=== PATIENT | female | born 1955 | race African-American/Black ===

== ENCOUNTER 2016-11-08 00:34 | Emergency (ER) | payer BC, OTHER ==
[2016-11-08] MEDS ORDERED: NORMAL SALINE 1000 ML 1,000 ML IV ONE ×3 (04:28→10:45)
[2016-11-08] MEDS ORDERED: FAMOTIDINE INJ/PF 20 MG/2 ML SDV IV ONE (04:29)
[2016-11-08] MEDS ORDERED: ONDANSETRON HCL INJ/PF 4 MG/2 ML SDV IV ONE (04:29)
--- NOTE | 2016-11-08 05:49 | ER Document Report ---
ED General - General Chief Complaint: Nausea/Vomiting/Diarrhea Stated Complaint: VOMITING Time Seen by Provider: 11/08/16 04:16 Mode of Arrival: Ambulatory Information source: Patient TRAVEL OUTSIDE OF THE [place] IN LAST 30 DAYS: No - HPI Notes: Patient is a pleasant 61-year-old black female presents to the emergency department with report of vomiting and diarrhea which started yesterday without hematemesis or bright red blood per rectum. The patient reports generalized weakness with muscle cramps that she has noticed today. The patient states she feels dehydrated and needs IV fluids. The patient denies any chest pain or shortness of breath. The patient reports previous crampy abdominal pain, denying abdominal pain currently. The patient reports a day or 2 prior to the onset of symptoms she had eaten grilled shrimp. She is unaware of any other exposure. There is no history of irritable bowel or previous significant events. The patient has had no recent antibiotics. No fever or chills. No back pain. Past medical history asthma and tobacco abuse and hypertension. History of cervical cancer currently in remission, but last chemotherapy was 2 years ago. Medications lisinopril, hydrochlorothiazide, ProAir air, Neurontin, Percocet as needed which she does not take on every day basis. Patient states she is not out of her pain medication. - Related Data Allergies/Adverse Reactions: codeine [Codeine] Allergy (Verified 07/30/13 16:12) Past Medical History - General Information source: Patient - Social History Smoking Status: Current Every Day Smoker Frequency of alcohol use: Rare Drug Abuse: None Lives with: Family Family History: Reviewed & Not Pertinent Patient has suicidal ideation: No Patient has homicidal ideation: No - Past Medical History Cardiac Medical History: Reports: Hx Hypertension Renal/ Medical History: Denies: Hx Peritoneal Dialysis Past Surgical History: Reports: Hx Bowel Surgery - 4inches removed., Hx Cholecystectomy - Immunizations Hx Diphtheria, Pertussis, Tetanus Vaccination: No Review of Systems - Review of Systems Notes: REVIEW OF SYSTEMS: CONSTITUTIONAL : Denies fever, chills, or sweats. EENT: Denies eye, ear, throat, or mouth pain or symptoms. Denies nasal or sinus congestion or discharge. Denies throat, tongue, or mouth swelling or difficulty swallowing. CARDIOVASCULAR: Denies chest pain. Denies palpitations or racing or irregular heart beat. Denies ankle edema. RESPIRATORY: Denies cough, cold, or chest congestion. Denies shortness of breath, difficulty breathing, or wheezing. GASTROINTESTINAL: Denies abdominal distention. Denies blood in vomitus, stools, or per rectum. Denies black, tarry stools. Denies constipation. GENITOURINARY: Denies difficulty urinating, painful urination, burning, frequency, blood in urine, or discharge. FEMALE GENITOURINARY: Denies vaginal bleeding, heavy or abnormal periods, irregular periods. Denies vaginal discharge or odor. MUSCULOSKELETAL: Denies back or neck pain or stiffness. Denies joint pain or swelling. SKIN: Denies rash, lesions or sores. HEMATOLOGIC : Denies easy bruising or bleeding. LYMPHATIC: Denies swollen, enlarged glands. NEUROLOGICAL: Denies confusion or altered mental status. Denies passing out or loss of consciousness. Denies dizziness or lightheadedness. Denies headache. Denies weakness or paralysis or loss of use of either side. Denies problems with gait or speech. Denies sensory loss, numbness, or tingling. Denies seizures. PSYCHIATRIC: Denies anxiety or stress. Denies depression, suicidal ideation, or homicidal ideation. ALL OTHER SYSTEMS REVIEWED AND NEGATIVE. Dictation was performed using [employer] voice recognition software Physical Exam - Vital signs Vitals: Temp Pulse Resp BP Pulse Ox 97.6 F 116 H 20 132/105 H 96 11/08/16 00:39 11/08/16 00:39 11/08/16 00:39 11/08/16 00:39 11/08/16 00:39 - Notes Notes: PHYSICAL EXAMINATION: GENERAL: Well-appearing, well-nourished and in no acute distress. HEAD: Atraumatic, normocephalic. EYES: Pupils equal round and reactive to light, extraocular movements intact, conjunctiva are normal. ENT: Nares patent, oropharynx clear without exudates. Dry mucous membranes. NECK: Normal range of motion, supple without lymphadenopathy LUNGS: Breath sounds clear to auscultation bilaterally and equal. No wheezes rales or rhonchi. HEART: Regular rate and rhythm without murmurs ABDOMEN: Soft, nontender, nondistended abdomen. No guarding, no rebound. No masses appreciated. Female : deferred Musculoskeletal: Normal range of motion, no pitting or edema. No cyanosis. Diffuse muscle cramps noted. No erythema or specific spasticity. NEUROLOGICAL: Cranial nerves grossly intact. Normal speech, normal gait. Normal sensory, motor exams. Normal reflexes. PSYCH: Normal mood, normal affect. SKIN: Warm, Dry, normal turgor, no rashes or lesions noted. Course - Re-evaluation Re-evalutation: 11/08/16 06:45 Patient was rehydrated with IV fluids, and was given Zofran for nausea and Pepcid IV. Blood work and urinalysis ordered. Stool culture is ordered given the recent seafood. CK level ordered given muscle spasms. Abdomen is nontender on exam. No concern for C. difficile given no antibiotics. No suggestion for cardiac etiology. 11/08/16 06:45 - Vital Signs Vital signs: Temp Pulse Resp BP Pulse Ox 97.6 F 116 H 20 132/105 H 96 11/08/16 00:39 11/08/16 00:39 11/08/16 00:39 11/08/16 00:39 11/08/16 00:39 - Laboratory Result Diagrams: 11/08/16 06:00 11/08/16 06:00 Laboratory results interpreted by me: 11/08/16 11/08/16 06:00 06:00 RBC 5.43 H MCV 76 L MCH 23.9 L MCHC 31.4 L RDW 19.0 H BUN 38 H Creatinine 2.30 H Est GFR ( Amer) 26 L Est GFR (Non-Af Amer) 21 L Glucose 122 H - EKG Interpretation by Id EKG shows normal: Sinus rhythm Additional EKG results interpreted by me: 11/08/16 05:49 EKG as interpreted by hi showed normal sinus rhythm heart rate of 97. There is no gross evidence for acute CT or ischemia identified. There is bilateral atrial enlargement noted. There is no old EKG available for comparison. Discharge - Discharge Clinical Impression: Dehydration Vomiting Qualifiers: Vomiting type: unspecified Vomiting Intractability: unspecified Nausea presence : with nausea Qualified Code(s): R11.2 - Nausea with vomiting, unspecified Diarrhea Qualifiers: Diarrhea type: presumed infectious Qualified Code(s): A09 - Infectious gastroenteritis and colitis, unspecified
[2016-11-08 06:13] LABS: ABSOLUTE BASOPHILS # (AUTO) 0.1 10^3/uL (0.0-0.2); ABSOLUTE LYMPHOCYTES (AUTO) 1.3 10^3/uL (0.5-4.7); ABSOLUTE MONOCYTES (AUTO) 0.8 10^3/uL (0.1-1.4); ABSOLUTE NEUT (AUTO) 7.1 10^3/uL (1.7-8.2); BASOPHILS % (AUTO) 0.6 % (0-2); EOSINOPHILS % (AUTO) 0.1 % (0-6); HEMATOCRIT 41.5 % (36.0-47.0); HGB HCT DIFFERENCE -2.5; LYMPHOCYTES % (AUTO) 14.1 % (13-45); MEAN CORPUSCULAR HEMOGLOBIN 23.9 pg (27.0-33.4); MEAN CORPUSCULAR HGB CONC 31.4 g/dL (32.0-36.0); MEAN CORPUSCULAR VOLUME 76 fl (80-97); MONOCYTES % (AUTO) 8.9 % (3-13); RED BLOOD COUNT 5.43 10^6/uL (3.72-5.28); SEGMENTED NEUTROPHILS % (AUTO) 76.3 % (42-78); WHITE BLOOD COUNT 9.3 10^3/uL (4.0-10.5)
[2016-11-08 06:29] LABS: ALANINE AMINOTRANSFERASE 46 U/L (9-52); ALBUMIN 4.4 g/dL (3.5-5.0); ALKALINE PHOSPHATASE 118 U/L (38-126); ANION GAP 14 (5-19); ASPARTATE AMINO TRANSFERASE 22 U/L (14-36); BILIRUBIN,DIRECT 0.3 mg/dL (0.0-0.4); BLOOD UREA NITROGEN 38 mg/dL (7-20); CALCIUM 9.4 mg/dL (8.4-10.2); CARBON DIOXIDE 23 mmol/L (22-30); CHLORIDE 105 mmol/L (98-107); GLUCOSE 122 mg/dL (75-110); LIPASE 35.8 U/L (23-300); MAGNESIUM 1.7 mg/dL (1.6-2.3); POTASSIUM 4.6 mmol/L (3.6-5.0); SODIUM 142.3 mmol/L (137-145); TOTAL PROTEIN 8.2 g/dL (6.3-8.2)
[2016-11-08] MEDS ORDERED: NORMAL SALINE 1000 ML 1,000 ML IV PRN (06:34)
[2016-11-08] MEDS ORDERED: METOCLOPRAMIDE HCL INJ/PF 10 MG/2 ML SDV IV ONE (07:25)
[2016-11-08 09:21] LABS: APPEARANCE,URINE CLOUDY; BILIRUBIN,URINE NEGATIVE (NEGATIVE); GLUCOSE, URINE NEGATIVE (NEGATIVE); KETONES,URINE NEGATIVE (NEGATIVE); LEUKOCYTE ESTERASE,URINE MODERATE (NEGATIVE); NITRITE,URINE NEGATIVE (NEGATIVE); PROTEIN,URINE 30 mg/dL (NEGATIVE); URINE SPECIFIC GRAVITY 1.018; UROBILINOGEN,URINE NEGATIVE mg/dL (<2.0)
[2016-11-08 10:41] LABS: ALANINE AMINOTRANSFERASE 38 U/L (9-52); ALBUMIN 3.8 g/dL (3.5-5.0); ALKALINE PHOSPHATASE 107 U/L (38-126); ANION GAP 12 (5-19); ASPARTATE AMINO TRANSFERASE 23 U/L (14-36); BILIRUBIN,DIRECT 0.3 mg/dL (0.0-0.4); BLOOD UREA NITROGEN 35 mg/dL (7-20); CALCIUM 8.2 mg/dL (8.4-10.2); CARBON DIOXIDE 20 mmol/L (22-30); CHLORIDE 108 mmol/L (98-107); GLUCOSE 100 mg/dL (75-110); POTASSIUM 4.3 mmol/L (3.6-5.0); SODIUM 140.3 mmol/L (137-145); TOTAL PROTEIN 7.4 g/dL (6.3-8.2)
[2016-11-08 12:22] VITALS: BP 105/63
--- NOTE | 2016-11-08 13:01 | EKG REPORT ---
SEVERITY:- ABNORMAL ECG - SINUS RHYTHM APOLINAR, CONSIDER BIATRIAL ABNORMALITIES BORDERLINE PROLONGED QT INTERVAL : Confirmed by: Michelle Hopper MD 08-Nov-2016 13:00:37
== END 2016-11-08 12:21 | disposition home or self-care (01) ==
LOC: ER 00:34
DX: R11.2 Nausea with vomiting, unspecified (principal); R19.7 Diarrhea, unspecified; E86.0 Dehydration; N28.9 Disorder of kidney and ureter, unspecified; R53.1 Weakness; R25.2 Cramp and spasm; I10 Essential (primary) hypertension; F17.200 Nicotine dependence, unspecified, uncomplicated; Z85.41 Personal history of malignant neoplasm of cervix uteri; Z79.899 Other long term (current) drug therapy; Z88.5 Allergy status to narcotic agent; Z90.49 Acquired absence of other specified parts of digestive tract; I51.7 Cardiomegaly
CPT/HCPCS: 93005; 99284; 96361; 96374; 96375; 36415; 82553; 83690; 83735; 85025; 80053; 81001; 84484; 93010; J2765; J2405; J7030; S0028

== ENCOUNTER 2017-07-05 07:09 | Inpatient (IN) | payer BC ==
[2017-07-05] MEDS ORDERED: ONDANSETRON HCL INJ/PF 4 MG/2 ML SDV IV ONE ×2 (08:08→13:18)
[2017-07-05] MEDS ORDERED: NORMAL SALINE 1000 ML 1,000 ML IV ONE ×2 (08:08→09:45)
--- NOTE | 2017-07-05 08:10 | ER Document Report ---
ED GI/ - General Chief Complaint: Abdominal Pain Stated Complaint: NAUSEA ABDOMINAL PAIN Time Seen by Provider: 07/05/17 07:49 Mode of Arrival: Wheelchair Information source: Patient Notes: Patient presents complaining of nausea, vomiting diarrhea that started yesterday. Patient denies any fever but does report chills. Patient does report decreased urine output. Patient additionally complains of muscle cramps. Patient states that she had been taking narcotics regularly but took herself off of them a week ago. Patient does not feel as though she is in withdrawal symptoms at this time. TRAVEL OUTSIDE OF THE [place] IN LAST 30 DAYS: No - HPI Patient complains to provider of: Abdominal pain, Diarrhea, Vomiting. No: Dysuria Onset: Yesterday Timing/Duration: Persistent, Worse Quality of pain: Cramping Pain Level: 5 Location: Epigastric Vaginal bleeding (Compared to normal period): None Associated symptoms: Chills, Diarrhea, Nausea, Vomiting. denies: Chest pain, Dizzy, Fever, Urinary hesitancy, Urinary frequency, Urinary retention, Vaginal discharge Exacerbated by: Denies Relieved by: Denies Similar symptoms previously: No Recently seen / treated by doctor: No - Related Data Allergies/Adverse Reactions: codeine [Codeine] Allergy (Verified 07/30/13 16:12) Past Medical History - General Information source: Patient - Social History Smoking Status: Current Every Day Smoker Smoking Education Provided: Yes Frequency of alcohol use: None Drug Abuse: None Occupation: none Lives with: Family Family History: Reviewed & Not Pertinent - Past Medical History Cardiac Medical History: Reports: Hx Hypertension Renal/ Medical History: Denies: Hx Peritoneal Dialysis GI Medical History: Reports: Hx Gastroesophageal Reflux Disease Musculoskeltal Medical History: Reports Other - chronic back pain Past Surgical History: Reports: Hx Bowel Surgery - 4inches removed., Hx Cholecystectomy - Immunizations Hx Diphtheria, Pertussis, Tetanus Vaccination: No Review of Systems - Review of Systems Constitutional: Chills. denies: Fever EENT: No symptoms reported Cardiovascular: No symptoms reported. denies: Chest pain Respiratory: No symptoms reported. denies: Cough, Short of breath Gastrointestinal: Abdominal pain, Diarrhea, Nausea, Vomiting, Poor fluid intake Genitourinary: Other - decreased output. denies: Dysuria Female Genitourinary: No symptoms reported Musculoskeletal: Back pain - chronic Skin: No symptoms reported Hematologic/Lymphatic: No symptoms reported Neurological/Psychological: No symptoms reported Physical Exam - Vital signs Vitals: Temp Pulse Resp BP Pulse Ox 97.8 F 122 H 20 118/72 95 07/05/17 07:18 07/05/17 07:18 07/05/17 07:18 07/05/17 07:18 07/05/17 07:18 - General General appearance: Alert In distress: Mild - HEENT Head: Normocephalic, Atraumatic Eyes: Normal Conjunctiva: Normal Nasal: Normal Mouth/Lips: Normal Mucous membranes: Dry Pharynx: Normal Neck: Normal, Supple - Respiratory Respiratory status: No respiratory distress Chest status: Nontender Breath sounds: Normal. No: Rales, Rhonchi, Stridor, Wheezing Chest palpation: Normal - Cardiovascular Rhythm: Tachycardia Heart sounds: S1 appreciated, S2 appreciated Murmur: No - Abdominal Inspection: Other - scars from previous abd surgery Distension: No distension Tenderness: Tender - epig, RUQ/LUQ Organomegaly: No organomegaly - Back Back: CVA tenderness - Extremities General upper extremity: Normal inspection, Nontender, Normal strength General lower extremity: Normal inspection, Nontender, Normal strength - Neurological Neuro grossly intact: Yes Cognition: Normal Amarjit Coma Scale Eye Opening: Spontaneous [place] Coma Scale Verbal: Oriented [place] Coma Scale Motor: Obeys Commands [place] Coma Scale Total: 15 - Psychological Associated symptoms: Normal affect, Normal mood - Skin Skin Temperature: Warm Skin Moisture: Dry Skin Color: Pale Course - Re-evaluation Re-evalutation: 07/05/17 10:00 Consulted with surgeon regarding patient's x-ray report. Presents with vomiting and diarrhea he advises obtaining CT scan as he is doubtful that patient has a bowel obstruction even the presence of diarrhea. 07/05/17 11:30 Patient continues with nausea and abdominal tenderness. CT scan report reviewed. Consulted with Dr. Braga regarding CT scan report. Agrees to come and evaluate patient in the emergency department. 07/05/17 15:25 Surgeon agrees to accept patient for admission and plans to take her to the OR - Vital Signs Vital signs: Temp Pulse Resp BP Pulse Ox 98.4 F 100 20 133/75 H 96 07/05/17 17:23 07/05/17 17:23 07/05/17 17:23 07/05/17 17:23 07/05/17 17:23 - Laboratory Result Diagrams: 07/05/17 08:50 07/05/17 08:50 Laboratory results interpreted by me: 07/05/17 07/05/17 07/05/17 08:50 08:50 10:00 WBC 14.2 H RBC 6.11 H MCV 74 L MCH 23.0 L MCHC 31.1 L RDW 19.0 H Seg Neuts % (Manual) 96 H Lymphocytes % (Manual) 2 L Monocytes % (Manual) 2 L Abs Neuts (Manual) 13.6 H Abs Lymphs (Manual) 0.3 L BUN 32 H Creatinine 1.84 H Est GFR ( Amer) 34 L Est GFR (Non-Af Amer) 28 L Glucose 182 H Calcium 11.0 H AST 43 H ALT 81 H Alkaline Phosphatase 155 H Total Protein 9.4 H Albumin 5.2 H Urine Protein 100 H Urine Urobilinogen 2.0 H Ur Leukocyte Esterase LARGE H Labs- Entire Visit 07/05/17 07/05/17 07/05/17 08:50 08:50 10:00 WBC 14.2 H RBC 6.11 H Hgb 14.1 Hct 45.2 MCV 74 L MCH 23.0 L MCHC 31.1 L RDW 19.0 H Plt Count 431 Total Counted 100 Seg Neutrophils % Not Reportable Seg Neuts % (Manual) 96 H Lymphocytes % Not Reportable Lymphocytes % (Manual) 2 L Monocytes % Not Reportable Monocytes % (Manual) 2 L Eosinophils % Not Reportable Eosinophils % (Manual) 0 Basophils % Not Reportable Basophils % (Manual) 0 Absolute Neutrophils Not Reportable Abs Neuts (Manual) 13.6 H Absolute Lymphocytes Not Reportable Abs Lymphs (Manual) 0.3 L Absolute Monocytes Not Reportable Abs Monocytes (Manual) 0.3 Absolute Eosinophils Not Reportable Absolute Eos (Manual) 0.0 Absolute Basophils Not Reportable Abs Basophils (Manual) 0.0 Toxic Granulation SLIGHT Large Platelets PRESENT Giant Platelets PRESENT Platelet Comment ADEQUATE Anisocytosis 2+ Microcytosis 1+ Sodium 141.5 Potassium 3.9 Chloride 99 Carbon Dioxide 27 Anion Gap 16 BUN 32 H Creatinine 1.84 H Est GFR ( Amer) 34 L Est GFR (Non-Af Amer) 28 L Glucose 182 H Calcium 11.0 H Magnesium 1.7 Total Bilirubin 1.0 Direct Bilirubin 0.4 Neonat Total Bilirubin Not Reportable Neonat Direct Bilirubin Not Reportable Neonat Indirect Bili Not Reportable AST 43 H ALT 81 H Alkaline Phosphatase 155 H Total Protein 9.4 H Albumin 5.2 H Lipase 84.8 Urine Color SHARATH Urine Appearance CLOUDY Urine pH 5.0 Ur Specific Inlet 1.028 Urine Protein 100 H Urine Glucose (UA) NEGATIVE Urine Ketones NEGATIVE Urine Blood NEGATIVE Urine Nitrite NEGATIVE Urine Bilirubin NEGATIVE Urine Urobilinogen 2.0 H Ur Leukocyte Esterase LARGE H Urine WBC (Auto) 61 Urine RBC (Auto) 14 U Hyaline Cast (Auto) 7 Urine Bacteria (Auto) 1+ Squamous Epi Cells Auto 37 Urine Mucus (Auto) MOD Urine Ascorbic Acid NEGATIVE - Diagnostic Test Radiology reviewed: Reports reviewed Discharge - Discharge Clinical Impression: Vomiting and diarrhea, Small bowel obstruction Abdominal pain Qualifiers: Abdominal location: upper abdomen, unspecified Qualified Code(s): R10.10 - Upper abdominal pain, unspecified UTI (urinary tract infection) Qualifiers: Urinary tract infection type: site unspecified Hematuria presence: without hematuria Qualified Code(s): N39.0 - Urinary tract infection, site not specified Condition: Stable Disposition: ADMITTED INPATIENT Admitting Provider: Surgicalist Unit Admitted: Surgical Floor
[2017-07-05 09:05] LABS: HEMATOCRIT 45.2 % (36.0-47.0); HEMOGLOBIN 14.1 g/dL (12.0-15.5); MEAN CORPUSCULAR HGB CONC 31.1 g/dL (32.0-36.0); MEAN CORPUSCULAR VOLUME 74 fl (80-97); PLATELET COUNT 431 10^3/uL (150-450); RED BLOOD COUNT 6.11 10^6/uL (3.72-5.28); WHITE BLOOD COUNT 14.2 10^3/uL (4.0-10.5)
[2017-07-05 09:22] LABS: ALANINE AMINOTRANSFERASE 81 U/L (9-52); ALBUMIN 5.2 g/dL (3.5-5.0); ALKALINE PHOSPHATASE 155 U/L (38-126); ANION GAP 16 (5-19); ASPARTATE AMINO TRANSFERASE 43 U/L (14-36); BILIRUBIN,DIRECT 0.4 mg/dL (0.0-0.4); BLOOD UREA NITROGEN 32 mg/dL (7-20); CARBON DIOXIDE 27 mmol/L (22-30); CHLORIDE 99 mmol/L (98-107); GLUCOSE 182 mg/dL (75-110); LIPASE 84.8 U/L (23-300); MAGNESIUM 1.7 mg/dL (1.6-2.3); POTASSIUM 3.9 mmol/L (3.6-5.0); SODIUM 141.5 mmol/L (137-145); TOTAL PROTEIN 9.4 g/dL (6.3-8.2)
[2017-07-05 09:25] LABS: ABSOLUTE LYMPHOCYTES# (MANUAL) 0.3 10^3/uL (0.5-4.7); ABSOLUTE MONOCYTES # (MANUAL) 0.3 10^3/uL (0.1-1.4); ABSOLUTE NEUTROPHILS# (MANUAL) 13.6 10^3/uL (1.7-8.2); BASOPHILS % (MANUAL) 0 % (0-2); EOSINOPHILS % (MANUAL) 0 % (0-6); LYMPHOCYTES % (MANUAL) 2 % (13-45); MONOCYTES % (MANUAL) 2 % (3-13); SEGMENTED NEUTROPHILS % (MAN) 96 % (42-78); TOTAL CELLS COUNTED 100
[2017-07-05 09:27] LABS: TOXIC GRANULATION SLIGHT
[2017-07-05 09:28] LABS: ANISOCYTOSIS 2+; PLATELET COMMENT ADEQUATE; PLATELET GIANT PRESENT; PLATELET LARGE PRESENT
--- NOTE | 2017-07-05 09:31 | RADIOLOGY REPORT (SQ) ---
EXAM DESCRIPTION: ACUTE ABDOMEN SERIES COMPLETED DATE/TIME: 07/05/2017 9:18 am REASON FOR STUDY: abd pain, n/v COMPARISON: None. NUMBER OF VIEWS: Three views. TECHNIQUE: Frontal chest, supine abdomen and upright/decubitus abdomen radiographic images acquired. LIMITATIONS: None. FINDINGS: CHEST: Lungs clear of infiltrates. FREE AIR: None. No abnormal gas collections. BOWEL GAS PATTERN: Mild small bowel dilation with several air-fluid levels. CALCIFICATIONS: Calcifications in the right upper quadrant which have the appearance of gallstones. There are also several calcifications in the right side of the pelvis which have a similar appearance . HARDWARE: Surgical clips. Right hip prosthesis. SOFT TISSUES: No gross mass or suggestion of organomegaly. BONES: No acute fracture. No worrisome bone lesions. OTHER: No other significant finding. IMPRESSION: SMALL BOWEL OBSTRUCTION. TECHNICAL DOCUMENTATION: JOB ID: [id number] [employer]- All Rights Reserved
--- NOTE | 2017-07-05 10:13 | EKG REPORT ---
SEVERITY:- ABNORMAL ECG - SINUS TACHYCARDIA CONSIDER LEFT VENTRICULAR HYPERTROPHY : Confirmed by: Tania Menendez 05-Jul-2017 10:12:47
[2017-07-05 10:26] LABS: APPEARANCE,URINE CLOUDY; BILIRUBIN,URINE NEGATIVE (NEGATIVE); COLOR,URINE AMBER; GLUCOSE, URINE NEGATIVE (NEGATIVE); KETONES,URINE NEGATIVE (NEGATIVE); LEUKOCYTE ESTERASE,URINE LARGE (NEGATIVE); NITRITE,URINE NEGATIVE (NEGATIVE); PROTEIN,URINE 100 mg/dL (NEGATIVE); URINE SPECIFIC GRAVITY 1.028
--- NOTE | 2017-07-05 11:17 | RADIOLOGY REPORT (SQ) ---
EXAM DESCRIPTION: CT ABD/PELVIS WITH IV ONLY COMPLETED DATE/TIME: 07/05/2017 11:02 am REASON FOR STUDY: abd pain, n/v/d COMPARISON: None. TECHNIQUE: CT scan of the abdomen and pelvis performed using helical scanning technique with dynamic intravenous contrast injection. No oral contrast. Images reviewed with lung, soft tissue, and bone windows. Reconstructed coronal and sagittal MPR images reviewed. Delayed images for evaluation of the urinary system also acquired. All images stored on PACS. All CT scanners at this facility use dose modulation, iterative reconstruction, and/or weight based d osing when appropriate to reduce radiation dose to as low as reasonably achievable (ALARA). [facility]: Dose Right [facility]: CareDose [facility]: Dose Right [facility]: Teradose 4D [facility]: Meican CONTRAST TYPE AND DOSE: contrast/concentration: Isovue 300.00 mg/ml; Total Contrast Delivered: 100.0 ml; Total Saline Delivered: 63.6 ml RENAL FUNCTION: BUN 32 creatinine 1.84. RADIATION DOSE: CT Rad equipment meets quality standard of care and radiation dose reduction techniq ues were employed. CTDIvol: 20.0 - 21.0 mGy. DLP: 2315 mGy-cm.. LIMITATIONS: None. FINDINGS: LOWER CHEST: No significant findings. No nodules or infiltrates. LIVER: Normal size. Diffuse fatty infiltration. Small cyst in the right lobe. No dilated ducts. SPLEEN: Normal size. No focal lesions. PANCREAS: No masses. No significant calcifications. No adjacent inflammation or peripancreatic fluid collections. Pancreatic duct not dilated. GALLBLADDER: Surgically absent. ADRENAL GLANDS: No significant masses or asymmetry. RIGHT KIDNEY AND URETER: No solid masses. No significant calcifications. No hydronephrosis or hyd roureter. LEFT KIDNEY AND URETER: Cortical cyst. No solid masses. No significant calcifications. No hydron ephrosis or hydroureter. AORTA AND VESSELS: No aneurysm. No dissection. Renal arteries, SMA, celiac without stenosis. RETROPERITONEUM: No retroperitoneal adenopathy, hemorrhage or masses. BOWEL AND PERITONEAL CAVITY: Diffusely dilated small bowel to the distal ileum. Anastomosis in the p roximal small bowel with no significant narrowing. No masses or inflammatory changes. No free fluid or peritoneal masses. There are several calcifications located along the posterior edge of the liver with appearance typical of gallstones. Similar calcifications in the right side of the pelvis. APPENDIX: Normal. PELVIS: No mass. No free fluid. Normal bladder. ABDOMINAL WALL: No masses. No hernias. BONES: No significant or acute findings. Right hip prosthesis. OTHER: No other significant finding. IMPRESSION: 1. SMALL BOWEL OBSTRUCTION. POINT OF OBSTRUCTION IS IN THE DISTAL SMALL BOWEL BUT NO FOCAL ETIOLOGY APPARENT. THERE ARE SURGICAL CHANGES WITH ANASTOMOSIS IN THE PROXIMAL SMALL BOWEL WITH NO OBSTRUCTIO N AT THIS LEVEL. 2. FATTY INFILTRATION OF THE LIVER. SMALL HEPATIC CYST. 3. CORTICAL CYST IN THE LEFT KIDNEY. 4. SURGICAL CHANGES ABOVE. NO OTHER SIGNIFICANT OR ACUTE FINDING IN THE ABDOMEN OR PELVIS ON CT S CAN WITH IV CONTRAST. TECHNICAL DOCUMENTATION: JOB ID: [id number] Quality ID # [id number]: Final reports with documentation of one or more dose reduction techniques (e.g., Au tomated exposure control, adjustment of the mA and/or kV according to patient size, use of iterative reconstruction technique) 2010 [employer]- All Rights Reserved
[2017-07-05] MEDS ORDERED: CEFTRIAXONE INJ 1000 MG VIAL IV ONE (11:47)
[2017-07-05] MEDS ORDERED: KETOROLAC TROMETHAMINE INJ/PF 30 MG/1 ML SDV IV PRN (15:45)
[2017-07-05] MEDS ORDERED: ONDANSETRON HCL INJ/PF 4 MG/2 ML SDV IV PRN (20:10)
[2017-07-05] MEDS ORDERED: DEXTROSE 50%-WATER 25 GM/50 ML DISP.SYRIN IV PRN ×2 (20:10)
[2017-07-05] MEDS ORDERED: DEXTROSE 40% GEL 15 GM TUBE PO PRN ×2 (20:10)
[2017-07-05] MEDS ORDERED: GLUCAGON,HUMAN RECOMB 1 MG INJ SUBCUT PRN (20:10)
[2017-07-05] MEDS ORDERED: PHARMACY COMMUNICATION ORDER MC NR (20:15)
[2017-07-05] MEDS ORDERED: ALBUTEROL SULFATE HFA (90 MCG/PUFF) 8 GM MDI (1 MDI/ER DISP) IH PRN (20:19)
[2017-07-05] MEDS ORDERED: ALBUTEROL SULFATE HFA (90 MCG/PUFF) 200 PUFF/8.5 GM MDI IH PRN (20:22)
--- NOTE | 2017-07-05 20:36 | PDOC H&P ---
History of Present Illness Admission Date/PCP: 07/05/17 15:30 MENA PEREZ MD History of Present Illness: PAUL CHOWDHURY is a 62 year old female admitted rorm the ER with complaints of noncolicky abdominal pain, vomiting, diarrhea x 1 day. Her problems started last night about 8pm after returning from a concert in [place]. She had some beans and then went to bed about 4hrs later she woke up with abdominal discomfort and the urge to vomit. She ended vomiting about 4x last night. She also had some abdominal distention. She has had a history of diarrhea since the 1970s when she had small bowel resection for an infective process she can't remember now. She normally moves her bowels about 3x/day and that continued yesterday. Her pain is noncolicky an dis constant. It is localized to the epigastrium. She had presented to the ER here about 4 months ago with similar symptoms and similar onset, she also remembers taking some percocet prior to the onset of her symptoms both times. She had an abdominal xray and CT that were both read as small bowel obstruction. Past Medical History Cardiac Medical History: Reports: Hypertension GI Medical History: Reports: Gastroesophageal Reflux Disease Musculoskeltal Medical History: Reports: Other - chronic back pain Past Surgical History Past Surgical History: Reports: Cholecystectomy Social History Lives with: Family Smoking Status: Current Every Day Smoker - Advance Directive Resuscitation Status: Full Code Family History Family History: Reviewed & Not Pertinent Parental Family History Reviewed: No Children Family History Reviewed: Unknown Sibling(s) Family History Reviewed.: Unknown Medication/Allergy Home Medications: Albuterol Sulfate [Proair Hfa] 1 puff IH QIDP PRN 07/05/17 Aspirin [Aspirin EC] 81 mg PO DAILY 07/05/17 Diclofenac Sodium [Voltaren] 2 gm TOP QIDP PRN 07/05/17 Lisinopril/Hydrochlorothiazide [Lisinopril-Hctz 20-12.5 mg Tab] 1 tab PO DAILY 07/05/17 Omeprazole 20 mg PO DAILY 07/05/17 Oxycodone HCl/Acetaminophen [Percocet 7.5-325 mg Tablet] 1 tab PO Q4HP PRN 07/05 Allergies/Adverse Reactions: codeine [Codeine] Allergy (Verified 07/30/13 16:12) Review of Systems Constitutional: ABSENT: chills, fever(s), headache(s), weight gain, weight loss Eyes: ABSENT: visual disturbances Ears: ABSENT: hearing changes Cardiovascular: ABSENT: chest pain, dyspnea on exertion, edema, orthropnea, palpitations Respiratory: ABSENT: cough, hemoptysis Gastrointestinal: PRESENT: as per HPI, abdominal pain, diarrhea, vomiting Neurological: ABSENT: abnormal gait, abnormal speech, confusion, dizziness, focal weakness, syncope Psychiatric: ABSENT: anxiety, depression, homidical ideation, suicidal ideation Physical Exam Vital Signs: Temp Pulse Resp BP Pulse Ox 98.2 F 107 H 17 140/85 H 92 07/05/17 18:15 07/05/17 18:15 07/05/17 18:15 07/05/17 18:15 07/05/17 18:15 General appearance: PRESENT: no acute distress, obese, well-developed, well- nourished Head exam: PRESENT: atraumatic, normocephalic Eye exam: PRESENT: conjunctiva pink, EOMI, PERRLA. ABSENT: scleral icterus Ear exam: PRESENT: normal external ear exam Throat exam: PRESENT: other - NGT in place Neck exam: ABSENT: carotid bruit, JVD, lymphadenopathy, thyromegaly Respiratory exam: PRESENT: clear to auscultation kaila. ABSENT: rales, rhonchi, wheezes Cardiovascular exam: PRESENT: RRR. ABSENT: diastolic murmur, rubs, systolic murmur GI/Abdominal exam: PRESENT: distended, soft - there is a midline lower abdominal surgical scar extending just above the umbilicus; there seems to be a small fascial drfect in the upper pole of the scar with tenderness there but no contents. Rectal exam: PRESENT: deferred Neurological exam: PRESENT: alert, awake, oriented to person, oriented to place , oriented to time, oriented to situation, CN II-XII grossly intact. ABSENT: motor sensory deficit Psychiatric exam: PRESENT: appropriate affect, normal mood. ABSENT: homicidal ideation, suicidal ideation Results Impressions: Acute Abdomen Series 07/05/17 08:23 IMPRESSION: SMALL BOWEL OBSTRUCTION. Abdomen/Pelvis CT 07/05/17 10:00 IMPRESSION: 1. SMALL BOWEL OBSTRUCTION. POINT OF OBSTRUCTION IS IN THE DISTAL SMALL BOWEL BUT NO FOCAL ETIOLOGY APPARENT. THERE ARE SURGICAL CHANGES WITH ANASTOMOSIS IN THE PROXIMAL SMALL BOWEL WITH NO OBSTRUCTION AT THIS LEVEL. 2. FATTY INFILTRATION OF THE LIVER. SMALL HEPATIC CYST. 3. CORTICAL CYST IN THE LEFT KIDNEY. 4. SURGICAL CHANGES ABOVE. NO OTHER SIGNIFICANT OR ACUTE FINDING IN THE ABDOMEN OR PELVIS ON CT SCAN WITH IV CONTRAST. Assessment & Plan - Diagnosis (1) Vomiting and diarrhea Is this a current diagnosis for this admission?: Yes (2) Small bowel obstruction Is this a current diagnosis for this admission?: Yes (3) Abdominal pain Qualifiers: Abdominal location: upper abdomen, unspecified Qualified Code(s): R10.10 - Upper abdominal pain, unspecified Is this a current diagnosis for this admission?: Yes - Plan Summary Plan Summary: The clinical picture is not classic for obstruction as patient continues to have diarrhea - the differentials for obstruction with diarrhea will include a Edgar's hernia (but the CT was read as not showing any hernias - will review with the radiologist given the clinical concern for a hernia at the upper pole of the midline scar. Keep NPO IVFluids - D51/2NS +20MEQ KCL @ 125cc/hr NGT drainage SCDs Lovenox 40 mg SQ daily. serial exams and xrays.
[2017-07-05] MEDS: POTASSI CL 20 MEQ/D5-1/2NS 1L 1,000 ML IV PRN (20:51)
--- NOTE | 2017-07-05 22:12 | RADIOLOGY REPORT (SQ) ---
EXAM DESCRIPTION: KUB/ABDOMEN (SINGLE VIEW) COMPLETED DATE/TIME: 07/05/2017 9:43 pm REASON FOR STUDY: Check Placement of NG Tube COMPARISON: None. NUMBER OF VIEWS: One view. TECHNIQUE: Supine radiographic image of the abdomen acquired. LIMITATIONS: None. FINDINGS: BOWEL GAS PATTERN: Normal bowel gas pattern. No dilated loops. CALCIFICATIONS: No suspicious calcifications. SOFT TISSUES: No gross mass or suggestion of organomegaly. HARDWARE: Clips right upper quadrant. BONES: No bone lesions or fracture. OTHER: Nasogastric tube in the stomach. IMPRESSION: Nasogastric tube in the stomach.
[2017-07-06] MEDS: POTASSI CL 20 MEQ/D5-1/2NS 1L 1,000 ML IV PRN (04:25)
[2017-07-06 07:12] LABS: ABSOLUTE EOSINOPHILS # (AUTO) 0.1 10^3/uL (0.0-0.6); ABSOLUTE LYMPHOCYTES (AUTO) 1.6 10^3/uL (0.5-4.7); ABSOLUTE MONOCYTES (AUTO) 0.9 10^3/uL (0.1-1.4); ABSOLUTE NEUT (AUTO) 5.4 10^3/uL (1.7-8.2); BASOPHILS % (AUTO) 0.4 % (0-2); HEMATOCRIT 34.7 % (36.0-47.0); LYMPHOCYTES % (AUTO) 20.3 % (13-45); MEAN CORPUSCULAR HEMOGLOBIN 23.3 pg (27.0-33.4); MEAN CORPUSCULAR HGB CONC 31.6 g/dL (32.0-36.0); MEAN CORPUSCULAR VOLUME 74 fl (80-97); MONOCYTES % (AUTO) 11.2 % (3-13); PLATELET COUNT 277 10^3/uL (150-450); RED BLOOD COUNT 4.71 10^6/uL (3.72-5.28); RED CELL DISTRIBUTION WIDTH 18.9 % (11.5-14.0); SEGMENTED NEUTROPHILS % (AUTO) 67.1 % (42-78); TOTAL CELLS COUNTED % (AUTO) 100 %
[2017-07-06 07:26] LABS: ANION GAP 7 (5-19); BLOOD UREA NITROGEN 25 mg/dL (7-20); CALCIUM 8.9 mg/dL (8.4-10.2); CARBON DIOXIDE 29 mmol/L (22-30); CHLORIDE 105 mmol/L (98-107); GLUCOSE 125 mg/dL (75-110); POTASSIUM 4.3 mmol/L (3.6-5.0); SODIUM 141.1 mmol/L (137-145)
--- NOTE | 2017-07-06 08:24 | RADIOLOGY REPORT (SQ) ---
EXAM DESCRIPTION: ABDOMEN 2 VIEWS COMPLETED DATE/TIME: 07/06/2017 7:32 am REASON FOR STUDY: ? small bowel obstruction COMPARISON: 07/05/2017. NUMBER OF VIEWS: Two views. TECHNIQUE: Supine and erect/decubitus radiographic images of the abdomen acquired. LIMITATIONS: None. FINDINGS: FREE AIR: None. No abnormal gas collections. LUNG BASES: Clear. BOWEL GAS PATTERN: Dilated small bowel with air-fluid levels. CALCIFICATIONS: Calcifications in the right upper quadrant and in the right pelvis. SOFT TISSUES: No gross mass or suggestion of organomegaly. HARDWARE: Surgical clips. Hardware in the right hip. BONES: No acute fracture. No worrisome bone lesions. OTHER: No other significant finding. IMPRESSION: DILATED SMALL BOWEL WITH AIR-FLUID LEVELS CONSISTENT WITH BOWEL OBSTRUCTION. NO SIGNIFI CANT CHANGE. TECHNICAL DOCUMENTATION: JOB ID: [id number] [employer]- All Rights Reserved
[2017-07-06] MEDS: ENOXAPARIN SODIUM INJ 40 MG/0.4 ML DISP.SYRIN SUBCUT SCH (10:06)
--- NOTE | 2017-07-06 19:54 | PDOC PROGRESS REPORT ---
Subjective Progress Note for:: 07/06/17 Subjective:: Pain has subsided. Had a good bowel movement today too. NGT discomfort. Reason For Visit: ABDOMINAL PAIN,VOMITING,DIARRHEA Physical Exam Vital Signs: Temp Pulse Resp BP Pulse Ox 98.0 F 88 18 121/75 95 07/06/17 16:00 07/06/17 16:00 07/06/17 16:00 07/06/17 16:00 07/06/17 16:00 Intake & Output 07/05/17 07/06/17 07/07/17 06:59 06:59 06:59 Intake Total 1500 Output Total 800 Balance 700 Weight 111.5 kg General appearance: PRESENT: no acute distress, well-nourished Head exam: PRESENT: atraumatic, normocephalic Eye exam: PRESENT: conjunctiva pink, EOMI, PERRLA. ABSENT: scleral icterus Ear exam: PRESENT: normal external ear exam Throat exam: PRESENT: other - NGT in place Respiratory exam: PRESENT: clear to auscultation kaila. ABSENT: rales, rhonchi, wheezes Cardiovascular exam: PRESENT: RRR. ABSENT: diastolic murmur, rubs, systolic murmur GI/Abdominal exam: PRESENT: normal bowel sounds, soft, other - midline surgical scar. ABSENT: distended, guarding, mass, organolmegaly, rebound, tenderness Musculoskeletal exam: PRESENT: ambulatory, full ROM, normal inspection, other Neurological exam: PRESENT: alert, awake, oriented to person, oriented to place , oriented to time, oriented to situation, CN II-XII grossly intact. ABSENT: motor sensory deficit Psychiatric exam: PRESENT: appropriate affect, normal mood. ABSENT: homicidal ideation, suicidal ideation Results Laboratory Results: 07/06/17 06:38 07/06/17 06:38 07/06/17 07/06/17 06:38 06:38 WBC 8.0 RBC 4.71 Hgb 11.0 L D Hct 34.7 L MCV 74 L MCH 23.3 L MCHC 31.6 L RDW 18.9 H Plt Count 277 Seg Neutrophils % 67.1 Lymphocytes % 20.3 Monocytes % 11.2 Eosinophils % 1.0 Basophils % 0.4 Absolute Neutrophils 5.4 Absolute Lymphocytes 1.6 Absolute Monocytes 0.9 Absolute Eosinophils 0.1 Absolute Basophils 0.0 Sodium 141.1 Potassium 4.3 Chloride 105 Carbon Dioxide 29 Anion Gap 7 BUN 25 H Creatinine 1.04 Est GFR ( Amer) > 60 Est GFR (Non-Af Amer) 54 L Glucose 125 H Calcium 8.9 Impressions: Acute Abdomen Series 07/05/17 08:23 IMPRESSION: SMALL BOWEL OBSTRUCTION. Abdomen/Pelvis CT 07/05/17 10:00 IMPRESSION: 1. SMALL BOWEL OBSTRUCTION. POINT OF OBSTRUCTION IS IN THE DISTAL SMALL BOWEL BUT NO FOCAL ETIOLOGY APPARENT. THERE ARE SURGICAL CHANGES WITH ANASTOMOSIS IN THE PROXIMAL SMALL BOWEL WITH NO OBSTRUCTION AT THIS LEVEL. 2. FATTY INFILTRATION OF THE LIVER. SMALL HEPATIC CYST. 3. CORTICAL CYST IN THE LEFT KIDNEY. 4. SURGICAL CHANGES ABOVE. NO OTHER SIGNIFICANT OR ACUTE FINDING IN THE ABDOMEN OR PELVIS ON CT SCAN WITH IV CONTRAST. KUB X-Ray 07/05/17 20:17 IMPRESSION: Nasogastric tube in the stomach. Abdomen X-Ray 07/06/17 06:00 IMPRESSION: DILATED SMALL BOWEL WITH AIR-FLUID LEVELS CONSISTENT WITH BOWEL OBSTRUCTION. NO SIGNIFICANT CHANGE. Assessment & Plan - Diagnosis (1) Vomiting and diarrhea Is this a current diagnosis for this admission?: Yes (2) Small bowel obstruction Is this a current diagnosis for this admission?: Yes (3) Abdominal pain Qualifiers: Abdominal location: upper abdomen, unspecified Qualified Code(s): R10.10 - Upper abdominal pain, unspecified Is this a current diagnosis for this admission?: Yes - Plan Summary Plan Summary: I further reviewed the abdominal CT today with the radiologist on duty - there is no transition zone, just dilated small bowel loops all the way to the cecum - this seems to be in keeping with the ongoing bowel movements. No bowel obstruction Will DC NGT Commnece clears and advance as tolerated.
[2017-07-06] MEDS ORDERED: INFLUENZA ADLT QUAD (36MOS+) 2017-18 VAC 0.5 ML SYR IM PRN (21:35)
[2017-07-07] MEDS: ENOXAPARIN SODIUM INJ 40 MG/0.4 ML DISP.SYRIN SUBCUT SCH (11:43)
--- NOTE | 2017-07-07 14:30 | PDOC PROGRESS REPORT ---
Subjective Progress Note for:: 07/07/17 Subjective:: She is tolerating a regular diet - breakfast and lunch Reason For Visit: ABDOMINAL PAIN,VOMITING,DIARRHEA Physical Exam Vital Signs: Temp Pulse Resp BP Pulse Ox 98.8 F 88 16 139/81 H 97 07/07/17 13:04 07/07/17 13:04 07/07/17 13:04 07/07/17 13:04 07/07/17 13:04 Intake & Output 07/06/17 07/07/17 07/08/17 06:59 06:59 06:59 Intake Total 1500 800 Output Total 800 70 Balance 700 730 Weight 111.5 kg 111.2 kg General appearance: PRESENT: no acute distress Eye exam: PRESENT: conjunctiva pink Respiratory exam: PRESENT: clear to auscultation kaila. ABSENT: rales, rhonchi, wheezes Cardiovascular exam: PRESENT: RRR. ABSENT: diastolic murmur, rubs, systolic murmur GI/Abdominal exam: PRESENT: normal bowel sounds, soft. ABSENT: distended, guarding, mass, organolmegaly, rebound, tenderness Neurological exam: PRESENT: alert, awake, oriented to person, oriented to place , oriented to time, oriented to situation, CN II-XII grossly intact. ABSENT: motor sensory deficit Results Laboratory Results: 07/06/17 06:38 07/06/17 06:38 Impressions: Acute Abdomen Series 07/05/17 08:23 IMPRESSION: SMALL BOWEL OBSTRUCTION. Abdomen/Pelvis CT 07/05/17 10:00 IMPRESSION: 1. SMALL BOWEL OBSTRUCTION. POINT OF OBSTRUCTION IS IN THE DISTAL SMALL BOWEL BUT NO FOCAL ETIOLOGY APPARENT. THERE ARE SURGICAL CHANGES WITH ANASTOMOSIS IN THE PROXIMAL SMALL BOWEL WITH NO OBSTRUCTION AT THIS LEVEL. 2. FATTY INFILTRATION OF THE LIVER. SMALL HEPATIC CYST. 3. CORTICAL CYST IN THE LEFT KIDNEY. 4. SURGICAL CHANGES ABOVE. NO OTHER SIGNIFICANT OR ACUTE FINDING IN THE ABDOMEN OR PELVIS ON CT SCAN WITH IV CONTRAST. KUB X-Ray 07/05/17 20:17 IMPRESSION: Nasogastric tube in the stomach. Abdomen X-Ray 07/06/17 06:00 IMPRESSION: DILATED SMALL BOWEL WITH AIR-FLUID LEVELS CONSISTENT WITH BOWEL OBSTRUCTION. NO SIGNIFICANT CHANGE. Assessment & Plan - Diagnosis (1) Vomiting and diarrhea Is this a current diagnosis for this admission?: Yes (2) Abdominal pain Qualifiers: Abdominal location: upper abdomen, unspecified Qualified Code(s): R10.10 - Upper abdominal pain, unspecified Is this a current diagnosis for this admission?: Yes - Plan Summary Plan Summary: Will discharge her home today.
--- NOTE | 2017-07-07 14:39 | PDOC DISCHARGE SUMMARY ---
General - Admit/Disc Date/PCP Admission Date/Primary Care Provider: 07/05/17 15:30 MENA PEREZ MD Discharge Date: 07/07/17 - Discharge Diagnosis (1) Vomiting and diarrhea Is this a current diagnosis for this admission?: Yes (2) Abdominal pain Is this a current diagnosis for this admission?: Yes (3) Gastroenteritis Is this a current diagnosis for this admission?: Yes - Additional Information Resuscitation Status: Full Code Discharge Diet: Regular Discharge Activity: Activity As Tolerated Home Medications: Albuterol Sulfate [Proair HFA] 1 puff IH QIDP PRN 07/05/17 Aspirin [Aspirin EC] 81 mg PO DAILY 07/05/17 Diclofenac Sodium [Voltaren] 2 gm TOP QIDP PRN 07/05/17 Lisinopril/Hydrochlorothiazide [Lisinopril-Hctz 20-12.5 mg Tab] 1 tab PO DAILY 07/05/17 Omeprazole 20 mg PO DAILY 07/05/17 Oxycodone HCl/Acetaminophen [Percocet 7.5-325 mg Tablet] 1 tab PO Q4HP PRN 07/05 History of Present Illness History of Present Illness: PAUL CHOWDHURY is a 62 year old female admitted rorm the ER with complaints of noncolicky abdominal pain, vomiting, diarrhea x 1 day. Her problems started last night about 8pm after returning from a concert in [place]. She had some beans and then went to bed about 4hrs later she woke up with abdominal discomfort and the urge to vomit. She ended vomiting about 4x last night. She also had some abdominal distention. She has had a history of diarrhea since the 1970s when she had small bowel resection for an infective process she can't remember now. She normally moves her bowels about 3x/day and that continued yesterday. Her pain is noncolicky an dis constant. It is localized to the epigastrium. She had presented to the ER here about 4 months ago with similar symptoms and similar onset, she also remembers taking some percocet prior to the onset of her symptoms both times. She had an abdominal xray and CT that were both read as small bowel obstruction but later review with radiologist revealed diffuse dilatation of the small bowel up to the ileocecal valve with no specific transition zone. Hospital Course Hospital Course: She was managed conservatively with an NGT that was placed by the ER physician. She continued to move her bowel throughout the admission. Stools were initially more loose but became more formed by day 1. Her pain had stopped by day 1. She had the NGT removed on day 1 of admission and started clears that were advanced to regular diet. She tolerated the diet and was discharged home on day 2. Physical Exam Vital Signs: Temp Pulse Resp BP Pulse Ox 98.8 F 88 16 139/81 H 97 07/07/17 13:04 07/07/17 13:04 07/07/17 13:04 07/07/17 13:04 07/07/17 13:04 Intake & Output 07/06/17 07/07/17 07/08/17 06:59 06:59 06:59 Intake Total 1500 800 Output Total 800 70 Balance 700 730 Weight 111.5 kg 111.2 kg General appearance: PRESENT: no acute distress, well-developed, well-nourished Head exam: PRESENT: atraumatic, normocephalic Eye exam: PRESENT: conjunctiva pink, EOMI, PERRLA. ABSENT: scleral icterus Mouth exam: PRESENT: moist, tongue midline Respiratory exam: PRESENT: clear to auscultation kaila. ABSENT: rales, rhonchi, wheezes Cardiovascular exam: PRESENT: RRR. ABSENT: diastolic murmur, rubs, systolic murmur GI/Abdominal exam: PRESENT: normal bowel sounds, soft. ABSENT: distended, guarding, mass, organolmegaly, rebound, tenderness Neurological exam: PRESENT: alert, awake, oriented to person, oriented to place , oriented to time, oriented to situation, CN II-XII grossly intact. ABSENT: motor sensory deficit Psychiatric exam: PRESENT: appropriate affect, normal mood. ABSENT: homicidal ideation, suicidal ideation Results Laboratory Results: 07/06/17 06:38 07/06/17 06:38 Impressions: Acute Abdomen Series 07/05/17 08:23 IMPRESSION: SMALL BOWEL OBSTRUCTION. Abdomen/Pelvis CT 07/05/17 10:00 IMPRESSION: 1. SMALL BOWEL OBSTRUCTION. POINT OF OBSTRUCTION IS IN THE DISTAL SMALL BOWEL BUT NO FOCAL ETIOLOGY APPARENT. THERE ARE SURGICAL CHANGES WITH ANASTOMOSIS IN THE PROXIMAL SMALL BOWEL WITH NO OBSTRUCTION AT THIS LEVEL. 2. FATTY INFILTRATION OF THE LIVER. SMALL HEPATIC CYST. 3. CORTICAL CYST IN THE LEFT KIDNEY. 4. SURGICAL CHANGES ABOVE. NO OTHER SIGNIFICANT OR ACUTE FINDING IN THE ABDOMEN OR PELVIS ON CT SCAN WITH IV CONTRAST. KUB X-Ray 07/05/17 20:17 IMPRESSION: Nasogastric tube in the stomach. Abdomen X-Ray 07/06/17 06:00 IMPRESSION: DILATED SMALL BOWEL WITH AIR-FLUID LEVELS CONSISTENT WITH BOWEL OBSTRUCTION. NO SIGNIFICANT CHANGE. Plan Discharge Plan: discharge home F/U with PCP Time Spent: Less than 30 Minutes
[2017-07-07 15:22] VITALS: BP 121/75
== END 2017-07-07 16:25 | disposition home or self-care (01) | DRG 390 ==
LOC: ER 07:09 → EH 15:30 → 2N 17:45
PROVIDERS: ADMIT Surgery; ATTEND Surgery
PROC: 0D9670Z Drainage of Stomach with Drainage Device, Via Natural or Artificial Opening (ICD-10-PCS; principal; 2017-07-05)
PROC: 3E0234Z Introduction of Serum, Toxoid and Vaccine into Muscle, Percutaneous Approach (ICD-10-PCS; 2017-07-07)
DX: K56.609 Unspecified intestinal obstruction, unspecified as to partial versus complete obstruction (principal); K52.9 Noninfective gastroenteritis and colitis, unspecified; I10 Essential (primary) hypertension; K21.9 Gastro-esophageal reflux disease without esophagitis; G89.29 Other chronic pain; M54.9 Dorsalgia, unspecified; F17.200 Nicotine dependence, unspecified, uncomplicated; Z90.49 Acquired absence of other specified parts of digestive tract; Z88.6 Allergy status to analgesic agent; Z79.82 Long term (current) use of aspirin; Z79.899 Other long term (current) drug therapy; Z23 Encounter for immunization
CPT/HCPCS: 36415; 74018; 74019; 74022; 74177; 80048; 80053; 81001; 83690; 83735; 85025; 87086; 87088; 87186; 90686; 93005; 93010; 96361; 96365; 96375; 96376; 99285; J0696; J1650; J1885; J2405; J3480; J3490; J7030

== ENCOUNTER 2019-08-04 06:32 | Inpatient (IN) | payer MEDICARE, MEDICAID ==
[2019-08-04 08:02] LABS: APPEARANCE,URINE SLIGHTLY-CLOUDY; BILIRUBIN,URINE NEGATIVE (NEGATIVE); GLUCOSE, URINE NEGATIVE (NEGATIVE); KETONES,URINE TRACE mg/dL (NEGATIVE); LEUKOCYTE ESTERASE,URINE SMALL (NEGATIVE); NITRITE,URINE NEGATIVE (NEGATIVE); PROTEIN,URINE 100 mg/dL (NEGATIVE); URINE SPECIFIC GRAVITY 1.023; UROBILINOGEN,URINE NEGATIVE mg/dL (<2.0)
[2019-08-04 08:08] LABS: COLOR,URINE YELLOW
[2019-08-04 08:27] LABS: ABSOLUTE LYMPHOCYTES (AUTO) 1.1 10^3/uL (0.5-4.7); ABSOLUTE MONOCYTES (AUTO) 0.5 10^3/uL (0.1-1.4); ABSOLUTE NEUT (AUTO) 10.5 10^3/uL (1.7-8.2); BASOPHILS % (AUTO) 0.3 % (0-2); EOSINOPHILS % (AUTO) 0.4 % (0-6); HEMATOCRIT 43.1 % (36.0-47.0); HEMOGLOBIN 13.8 g/dL (12.0-15.5); LYMPHOCYTES % (AUTO) 8.9 % (13-45); MEAN CORPUSCULAR HEMOGLOBIN 23.7 pg (27.0-33.4); MEAN CORPUSCULAR VOLUME 74 fl (80-97); MONOCYTES % (AUTO) 3.9 % (3-13); PLATELET COUNT 379 10^3/uL (150-450); RED BLOOD COUNT 5.83 10^6/uL (3.72-5.28); RED CELL DISTRIBUTION WIDTH 20.3 % (11.5-14.0); SEGMENTED NEUTROPHILS % (AUTO) 86.5 % (42-78); TOTAL CELLS COUNTED % (AUTO) 100 %; WHITE BLOOD COUNT 12.1 10^3/uL (4.0-10.5)
[2019-08-04] MEDS ORDERED: NORMAL SALINE 1000 ML 1,000 ML IV ONE ×2 (09:06→13:27)
[2019-08-04] MEDS ORDERED: FENTANYL CITRATE INJ/PF 100 MCG/2 ML AMPUL IV ONE ×2 (09:07→11:28)
[2019-08-04] MEDS ORDERED: ONDANSETRON HCL INJ/PF 4 MG/2 ML SDV IV ONE (09:07)
--- NOTE | 2019-08-04 09:14 | ER Document Report ---
ED General - General Chief Complaint: Abdominal Pain Stated Complaint: CONSTIPATION,VOMITING,SWOLLEN ABDOMEN,WEAKNESS Time Seen by Provider: 08/04/19 08:13 TRAVEL OUTSIDE OF THE [place] IN LAST 30 DAYS: No - HPI Notes: Chief complaint: Abdominal pain, constipation, nausea vomiting and severe abdominal distention 64-year-old female followed by [facility] admitted to the hospital with small bowel obstruction on the hospital service last month. No specific etiology was determined. She was treated with IV fluids, NG tube and this resolved over several days. Basically back with the same presentation again today. No bowel movement in about 5 days. No fever chills. No dysuria. She is vom ited once in the last 24 hours and she is not eating and drinking. Multiple prior abdominal surgeries including appendectomy and cholecystectomy. - Related Data Allergies/Adverse Reactions: codeine [Codeine] Allergy (Verified 08/04/19 06:43) Past Medical History - General Information source: Patient, [facility] Records - Social History Smoking Status: Current Every Day Smoker Frequency of alcohol use: None Drug Abuse: None Lives with: Family Family History: Reviewed & Not Pertinent Patient has suicidal ideation: No Patient has homicidal ideation: No - Past Medical History Cardiac Medical History: Reports: Hx Hypertension Denies: Hx Congestive Heart Failure, Hx Heart Attack Pulmonary Medical History: Reports: Hx Asthma Denies: Hx Bronchitis, Hx COPD, Hx Pneumonia, Hx Tuberculosis Neurological Medical History: Denies: Hx Seizures, Hx Parkinson's Disease Renal/ Medical History: Denies: Hx End Stage Renal Disease, Hx Kidney Stones, Hx Peritoneal Dialysis GI Medical History: Reports: Hx Gastroesophageal Reflux Disease. Denies: Hx Cirrhosis, Hx Ulcer Musculoskeletal Medical History: Denies Hx Arthritis, Denies Hx Multiple S clerosis Psychiatric Medical History: Denies: Hx Bipolar Disorder, Hx Depression, Hx Schizophrenia Past Surgical History: Reports: Hx Abdominal Surgery - colon resection, Hx Appendectomy, Hx Bowel Surgery - 4inches removed., Hx Cholecystectomy - Immunizations Hx Diphtheria, Pertussis, Tetanus Vaccination: No Review of Systems - Review of Systems Notes: Constitutional: Negative for fever. HENT: Negative for sore throat. Eyes: Negative for visual changes. Cardiovascular: Negative for chest pain. Respiratory: Negative for shortness of breath. Gastrointestinal: As per HPI. Genitourinary: Negative for dysuria. Musculoskeletal: Negative for back pain. Skin: Negative for rash. Neurological: Negative for headaches, weakness or numbness. 10 point ROS negative except as marked above and in HPI. Physical Exam - Vital signs Vitals: Temp Pulse Resp BP Pulse Ox 97.6 F 120 H 20 123/83 93 08/04/19 06:38 08/04/19 06:38 08/04/19 06:38 08/04/19 06:38 08/04/19 06:38 - Notes Notes: GENERAL: Elderly female who is actively vomiting and appears uncomfortable with obviously distended abdomen. SKIN: Good turgor no rashes. HEAD: Normocephalic atraumatic. EYES: PERRLA. EOMI. Conjunctivae and sclerae clear. EARS: CANALS AND TMS CLEAR. NOSE: CLEAR. MOUTH: Moist mucosa. Good dentition. No stridor or edema. No drooling. NECK: Supple. No masses or thyromegaly. No adenopathy. Carotids 2+ without bruits. No JVD. BACK: Symmetrical without tenderness. CHEST: Respirations unlabored. Breath sounds clear and symmetrical. HEART: Regular rhythm. No murmur gallop or rub. ABDOMEN: Very distended. Quiet. Tympanitic to percussion. Mild epigastric tenderness. Multiple surgical scars present. No masses, organomegaly or rebound. No bruits. GENITALIA: Deferred. EXTREMITIES: No edema. No calf tenderness. Cap refill less than 1.5 seconds. Dorsalis pedis and posterior tibial pulses 3+ and symmetrical. NEUROLOGICAL: GCS 15. Alert and oriented x3. Fluent speech. Cranial nerves II through XII intact. Sensorimotor and cerebellar normal. Normal tone. PSYCHIATRIC: Anxious affect. Course - Re-evaluation Re-evalutation: 08/04/19 09:14 This patient appears to have recurrent small bowel obstruction clinically. We will keep her n.p.o. and place an NG tube. I have ordered a CT abdomen pelvis with IV and oral contrast. We will administer IV normal saline and initial dose of IV fentanyl and Zofran. White count is mildly elevated. She has no fever. Hemoglobin is normal. Urinalysis, lipase and multi Alia profile are pending. I will also request an EKG. 08/04/19 13:27 Patient has a high-grade small bowel obstruction demonstrated on abdominal CT with a transition point right lower quadrant. I placed an NG tube. Patient has had pain medications and antiemetics and is receiving IV hydration. I discussed case with Dr. Padilla from surgery who has accepted admission. - Vital Signs Vital signs: Temp Pulse Resp BP Pulse Ox 97.6 F 120 H 20 123/83 93 08/04/19 06:38 08/04/19 06:38 08/04/19 06:38 08/04/19 06:38 08/04/19 06:38 - Laboratory Result Diagrams: 08/04/19 08:05 08/04/19 09:33 Laboratory results interpreted by me: 08/04/19 08/04/19 08/04/19 07:24 08:05 09:33 WBC 12.1 H RBC 5.83 H MCV 74 L MCH 23.7 L RDW 20.3 H Lymph % (Auto) 8.9 L Absolute Neuts (auto) 10.5 H Seg Neutrophils % 86.5 H Glucose 128 H AST 42 H ALT 53 H Alkaline Phosphatase 128 H Total Protein 8.6 H Urine Protein 100 H Urine Ketones TRACE H Ur Leukocyte Esterase SMALL H Urine Ascorbic Acid 40 H - EKG Interpretation by Me Additional EKG results interpreted by me: 08/04/19 09:42 Twelve-lead EKG from 0927 hrs. reviewed contemporaneously by me demonstrating sinus tachycardia with rate of 105. QRS axis is 65 degrees. Intervals are normal. There are no acute ST/T wave changes. Discharge - Discharge Clinical Impression: Small bowel obstruction Condition: Stable Disposition: ADMITTED INPATIENT Admitting Provider: Dr. Padilla Unit Admitted: Surgical Floor
[2019-08-04 10:04] LABS: ALBUMIN 4.7 g/dL (3.5-5.0); ALKALINE PHOSPHATASE 128 U/L (38-126); ANION GAP 10 (5-19); ASPARTATE AMINO TRANSFERASE 42 U/L (14-36); BILIRUBIN,DIRECT 0.1 mg/dL (0.0-0.4); BLOOD UREA NITROGEN 15 mg/dL (7-20); CALCIUM 9.9 mg/dL (8.4-10.2); CARBON DIOXIDE 26 mmol/L (22-30); CHLORIDE 101 mmol/L (98-107); GLUCOSE 128 mg/dL (75-110); TOTAL PROTEIN 8.6 g/dL (6.3-8.2)
[2019-08-04] MEDS ORDERED: METOCLOPRAMIDE HCL INJ/PF 10 MG/2 ML SDV IV ONE (10:15)
--- NOTE | 2019-08-04 13:10 | RADIOLOGY REPORT (SQ) ---
EXAM DESCRIPTION: CT ABD/PELVIS WITH IV ORAL COMPLETED DATE/TIME: 08/04/2019 12:50 pm REASON FOR STUDY: vomiting/abd pain r/o SBO COMPARISON: 07/05/2017 TECHNIQUE: CT scan of the abdomen and pelvis performed using helical scanning technique with dynamic intravenous contrast injection. No oral contrast. Images reviewed with lung, soft tissue, and bone windows. Reconstructed coronal and sagittal MPR images reviewed. Delayed images for evaluation of the urinary system also acquired. All images stored on PACS. All CT scanners at this facility use dose modulation, iterative reconstruction, and/or weight based d osing when appropriate to reduce radiation dose to as low as reasonably achievable (ALARA). [facility]: Dose Right [facility]: CareDose [facility]: Dose Right [facility]: Teradose 4D [facility]: IntroMaps CONTRAST TYPE AND DOSE: contrast/concentration: Isovue 350.00 mg/ml; Total Contrast Delivered: 100.0 ml; Total Saline Delivered: 64.0 ml RENAL FUNCTION: GFR > 60. RADIATION DOSE: CT Rad equipment meets quality standard of care and radiation dose reduction techniq ues were employed. CTDIvol: 19.6 - 20.6 mGy. DLP: 2258 mGy-cm.. LIMITATIONS: None. FINDINGS: LOWER CHEST: No significant findings. No nodules or infiltrates. LIVER: Stable appearing hypodensities scattered throughout the liver. The liver is mildly hypoenhanc ing, consistent with hepatic steatosis. SPLEEN: Normal size. No focal lesions. PANCREAS: No masses. No significant calcifications. No adjacent inflammation or peripancreatic fluid collections. Pancreatic duct not dilated. GALLBLADDER: Surgically absent. ADRENAL GLANDS: No significant masses or asymmetry. RIGHT KIDNEY AND URETER: No solid masses. No significant calcifications. No hydronephrosis or hyd roureter. LEFT KIDNEY AND URETER: No solid masses. No significant calcifications. No hydronephrosis or hydr oureter. Stable exophytic cyst on the lower pole. AORTA AND VESSELS: No aneurysm. No dissection. Renal arteries, SMA, celiac without stenosis. RETROPERITONEUM: No retroperitoneal adenopathy, hemorrhage or masses. BOWEL AND PERITONEAL CAVITY: The small bowel is fluid-filled and dilated to a maximum diameter of 8 c m at a site of prior anastomosis. There is a transition point in the right lower quadrant in the pre sumed ileum. No significant free fluid or mesenteric edema is appreciated. APPENDIX: Not visualized. PELVIS: Somewhat limited evaluation due to streak artifact from a right prosthetic hip. ABDOMINAL WALL: No masses. No hernias. BONES: Right hip prosthesis. No acute findings. OTHER: No other significant finding. IMPRESSION: 1. Findings consistent with high-grade small bowel obstruction with transition point i n right lower quadrant 2. Chronic changes as above TECHNICAL DOCUMENTATION: JOB ID: [id number] Quality ID # [id number]: Final reports with documentation of one or more dose reduction techniques (e.g., Au tomated exposure control, adjustment of the mA and/or kV according to patient size, use of iterative reconstruction technique) 2010 [employer]- All Rights Reserved Reading location - IP/workstation name: [email or web address]
--- NOTE | 2019-08-04 13:35 | RADIOLOGY REPORT (SQ) ---
EXAM DESCRIPTION: CHEST SINGLE VIEW COMPLETED DATE/TIME: 08/04/2019 1:25 pm REASON FOR STUDY: NG Placement COMPARISON: None. EXAM PARAMETERS: NUMBER OF VIEWS: One view. TECHNIQUE: Single frontal radiographic view of the chest acquired. RADIATION DOSE: NA LIMITATIONS: Over exposure FINDINGS: Limited evaluation of the heart lungs due to exposure, however the enteric tube is identif ied with the tip projecting over the expected region of stomach. IMPRESSION: Limited exam with enteric tube tip projecting over the stomach. TECHNICAL DOCUMENTATION: JOB ID: [id number] 2010 [employer]- All Rights Reserved Reading location - IP/workstation name: [email or web address]
[2019-08-04] MEDS ORDERED: PROCHLORPERAZINE EDISYLATE INJ 10 MG/2 ML VIAL IV ONE (14:13)
[2019-08-04] MEDS: FENTANYL CITRATE INJ/PF 100 MCG/2 ML AMPUL IV PRN ×4 (14:28→23:15)
[2019-08-04] MEDS ORDERED: DEXTROSE 50%-WATER 25 GM/50 ML DISP.SYRIN IV PRN ×2 (16:27)
[2019-08-04] MEDS ORDERED: POTASSI CL 30 MEQ/D5-1/2NS 1L 30 MEQ/1,000 ML RTUINJ IV PRN (16:27)
[2019-08-04] MEDS ORDERED: GLUCAGON,HUMAN RECOMB 1 MG INJ SUBCUT PRN (16:27)
[2019-08-04] MEDS ORDERED: DEXTROSE 40% GEL 15 GM TUBE PO PRN ×2 (16:27)
[2019-08-04] MEDS ORDERED: PHARMACY COMMUNICATION ORDER MC NR (16:30)
--- NOTE | 2019-08-04 17:57 | RADIOLOGY REPORT (SQ) ---
EXAM DESCRIPTION: KUB/ABDOMEN (SINGLE VIEW) COMPLETED DATE/TIME: 08/04/2019 4:55 pm REASON FOR STUDY: Check Placement of NG Tube COMPARISON: None. NUMBER OF VIEWS: One view. TECHNIQUE: Supine radiographic image of the abdomen acquired. LIMITATIONS: None. FINDINGS: BOWEL GAS PATTERN: Normal bowel gas pattern. No dilated loops. CALCIFICATIONS: No suspicious calcifications. SOFT TISSUES: No gross mass or suggestion of organomegaly. HARDWARE: NG tube extends up into the gastric fundus. BONES: No acute fracture. No worrisome bone lesions. OTHER: No other significant finding. IMPRESSION: NG tube as described. TECHNICAL DOCUMENTATION: JOB ID: [id number] 2010 [employer]- All Rights Reserved Reading location - IP/workstation name: [email or web address]
--- NOTE | 2019-08-04 18:18 | EKG REPORT ---
SEVERITY:- BORDERLINE ECG - SINUS TACHYCARDIA PROMINENT P WAVES, NONDIAGNOSTIC : Confirmed by: Tania Menendez 04-Aug-2019 18:16:29
[2019-08-04] MEDS: POTASSI CL 20 MEQ/D5-1/2NS 1L 1000 ML IV PRN (19:39)
[2019-08-04] MEDS: ONDANSETRON HCL INJ/PF 4 MG/2 ML SDV IV PRN (19:42)
--- NOTE | 2019-08-04 20:10 | PDOC H&P ---
History of Present Illness Admission Date/PCP: 08/04/19 14:33 Patient complains of: abdominal pain, nausea,vomiting History of Present Illness: PAUL CHOWDHURY is a 64 year old female complaint: Abdominal pain, constipation, nausea vomiting and severe abdominal distention 64-year-old female followed by [facility] admitted to the hospital with small bowel obstruction on the hospital service last month. No specific etiology was determined. She was treated with IV fluids, NG tube and this resolved over several days. Basically back with the same presentation again today. No bowel movement in about 5 days. No fever chills. No dysuria. She is vomited once in the last 24 hours and she is not eating and drinking. Multiple prior abdominal surgeries including appendectomy and cholecystectomy. NG tube was placed in the emergency room with removal approximately 2 L of fluid from her stomach with relief of pain. Past Medical History Cardiac Medical History: Reports: Hypertension Denies: Congestive Heart Failure, Myocardial Infarction Pulmonary Medical History: Reports: Asthma Denies: Bronchitis, Chronic Obstructive Pulmonary Disease (COPD), Pneumonia, Tuberculosis Neurological Medical History: Denies: Seizures Renal/ Medical History: Denies: End Stage Renal Disease GI Medical History: Reports: Gastroesophageal Reflux Disease Denies: Cirrhosis Musculoskeltal Medical History: Denies: Arthritis Psychiatric Medical History: Denies: Bipolar Disorder, Depression Hematology: Denies: Anemia, Bleeding Tendencies Past Surgical History Past Surgical History: Reports: Appendectomy, Cholecystectomy Social History Lives with: Family Smoking Status: Current Every Day Smoker Drugs: None Family History Family History: Reviewed & Not Pertinent Parental Family History Reviewed: No Children Family History Reviewed: NA Sibling(s) Family History Reviewed.: NA Medication/Allergy Home Medications: Albuterol Sulfate [Proair HFA] 1 puff IH QIDP PRN 07/05/17 Aspirin [Aspirin EC] 81 mg PO DAILY 07/05/17 Lisinopril/Hydrochlorothiazide [Lisinopril-Hctz 20-12.5 mg Tab] 1 tab PO DAILY 07/05/17 Omeprazole 20 mg PO DAILY 07/05/17 Allergies/Adverse Reactions: codeine [Codeine] Allergy (Verified 08/04/19 06:43) Review of Systems Constitutional: PRESENT: as per HPI Eyes: ABSENT: as per HPI, visual disturbances, other Ears: ABSENT: as per HPI, hearing changes, other Nose, Mouth, and Throat: ABSENT: as per HPI, headache(s), mouth pain, sore throat, vertigo, other Breasts: ABSENT: as per HPI, other Cardiovascular: ABSENT: as per HPI, chest pain, dyspnea on exertion, edema, orthropnea, palpitations, other Respiratory: ABSENT: as per HPI, cough, dyspnea, hemoptysis, sputum, other Gastrointestinal: PRESENT: abdominal pain, bloating, nausea, vomiting Genitourinary: ABSENT: as per HPI, difficulty urinating, dysuria, hematuria, nocturia, other Musculoskeletal: ABSENT: as per HPI, back pain, deformity, joint swelling, muscle weakness, other Integumentary: ABSENT: as per HPI, diaphoresis, erythema, lesions, pruritus, rash, wounds, other Neurological: ABSENT: as per HPI, abnormal gait, abnormal movements, abnormal speech, confusion, convulsions, dizziness, focal weakness, frequent falls, lack of coordination, memory loss, numbness, paresthesias, restless legs, syncope, ti ngling, tremor(s), vertigo, weakness, other Psychiatric: ABSENT: as per HPI, anxiety, depression, hallucinations, homidical ideation, suicidal ideation, other Endocrine: ABSENT: as per HPI, cold intolerance, flushing, heat intolerance, menstrual abnormalities, polydipsia, polyphagia, polyuria, other Allergic/Immunologic: ABSENT: as per HPI, seasonal rhinorrhea, other Physical Exam Vital Signs: Temp Pulse Resp BP Pulse Ox 98.7 F 104 H 18 134/77 H 96 08/04/19 19:12 08/04/19 19:12 08/04/19 19:12 08/04/19 19:12 08/04/19 19:12 Intake & Output 08/03/19 08/04/19 08/05/19 06:59 06:59 06:59 Intake Total 1000 Balance 1000 Weight 107.3 kg Results Laboratory Results: 08/04/19 08:05 08/04/19 09:33 08/04/19 08/04/19 08/04/19 07:24 08:05 08:05 WBC 12.1 H RBC 5.83 H Hgb 13.8 Hct 43.1 MCV 74 L MCH 23.7 L MCHC 32.0 RDW 20.3 H Plt Count 379 Seg Neutrophils % 86.5 H Sodium Cancelled Potassium Cancelled Chloride Cancelled Carbon Dioxide Cancelled Anion Gap Cancelled BUN Cancelled Creatinine Cancelled Est GFR ( Amer) Cancelled Est GFR (Non-Af Amer) Cancelled Glucose Cancelled Calcium Cancelled Total Bilirubin Cancelled AST Cancelled Alkaline Phosphatase Cancelled Total Protein Cancelled Albumin Cancelled Lipase Cancelled Urine Color YELLOW Urine Appearance SLIGHTLY-CLOUDY Urine pH 5.0 Ur Specific [place] 1.023 Urine Protein 100 H Urine Glucose (UA) NEGATIVE Urine Ketones TRACE H Urine Blood NEGATIVE Urine Nitrite NEGATIVE Ur Leukocyte Esterase SMALL H Urine WBC (Auto) 9 Urine RBC (Auto) 5 08/04/19 09:33 WBC RBC Hgb Hct MCV MCH MCHC RDW Plt Count Seg Neutrophils % Sodium 137.3 Potassium 4.0 Chloride 101 Carbon Dioxide 26 Anion Gap 10 BUN 15 Creatinine 0.83 Est GFR ( Amer) > 60 Est GFR (Non-Af Amer) Glucose 128 H Calcium 9.9 Total Bilirubin 1.0 AST 42 H Alkaline Phosphatase 128 H Total Protein 8.6 H Albumin 4.7 Lipase 38.1 Urine Color Urine Appearance Urine pH Ur Specific [place] Urine Protein Urine Glucose (UA) Urine Ketones Urine Blood Urine Nitrite Ur Leukocyte Esterase Urine WBC (Auto) Urine RBC (Auto) Impressions: Abdomen/Pelvis CT 08/04/19 00:00 IMPRESSION: 1. Findings consistent with high-grade small bowel obstruction with transition point in right lower quadrant 2. Chronic changes as above Chest X-Ray 08/04/19 00:00 IMPRESSION: Limited exam with enteric tube tip projecting over the stomach. KUB X-Ray 08/04/19 16:31 IMPRESSION: NG tube as described. Assessment & Plan - Plan Summary Plan Summary: Impression recurrent small bowel obstruction. Status post multiple abdominal surgeries including small bowel resection for previa small bowel obstruction cholecystectomy appendectomy questionable colon resection. Recommendations NG tube suction IV fluid hydration close observation patient may need exploratory laparotomy lysis of adhesions during this hospital stay.
[2019-08-04] MEDS ORDERED: INFLUENZA QUAD (6MOS+) 2019-20 VAC 0.5 ML SYR IM ONE (20:54)
[2019-08-04] MEDS: FAMOTIDINE INJ/PF 20 MG/2 ML SDV IV SCH (21:18)
[2019-08-05] MEDS: FENTANYL CITRATE INJ/PF 100 MCG/2 ML AMPUL IV PRN ×2 (02:45→21:14)
[2019-08-05] MEDS: POTASSI CL 20 MEQ/D5-1/2NS 1L 1000 ML IV PRN ×3 (03:17→21:15)
[2019-08-05 05:46] LABS: ABSOLUTE BASOPHILS # (AUTO) 0.1 10^3/uL (0.0-0.2); ABSOLUTE EOSINOPHILS # (AUTO) 0.1 10^3/uL (0.0-0.6); ABSOLUTE LYMPHOCYTES (AUTO) 2.2 10^3/uL (0.5-4.7); ABSOLUTE MONOCYTES (AUTO) 1.1 10^3/uL (0.1-1.4); ABSOLUTE NEUT (AUTO) 4.6 10^3/uL (1.7-8.2); BASOPHILS % (AUTO) 1.1 % (0-2); HEMATOCRIT 39.2 % (36.0-47.0); HEMOGLOBIN 12.5 g/dL (12.0-15.5); LYMPHOCYTES % (AUTO) 27.3 % (13-45); MEAN CORPUSCULAR HEMOGLOBIN 23.8 pg (27.0-33.4); MEAN CORPUSCULAR VOLUME 74 fl (80-97); PLATELET COUNT 311 10^3/uL (150-450); RED BLOOD COUNT 5.28 10^6/uL (3.72-5.28); RED CELL DISTRIBUTION WIDTH 20.4 % (11.5-14.0); SEGMENTED NEUTROPHILS % (AUTO) 56.6 % (42-78); TOTAL CELLS COUNTED % (AUTO) 100 %; WHITE BLOOD COUNT 8.1 10^3/uL (4.0-10.5)
[2019-08-05 06:20] LABS: ANION GAP 9 (5-19); BLOOD UREA NITROGEN 16 mg/dL (7-20); CALCIUM 8.8 mg/dL (8.4-10.2); CARBON DIOXIDE 26 mmol/L (22-30); CHLORIDE 104 mmol/L (98-107); GLUCOSE 106 mg/dL (75-110); POTASSIUM 4.4 mmol/L (3.6-5.0)
[2019-08-05] MEDS: FAMOTIDINE INJ/PF 20 MG/2 ML SDV IV SCH ×2 (09:14→21:14)
[2019-08-05] MEDS ORDERED: PHENOL/SODIUM PHENOLATE 100 SPRAY/177 ML BOTTLE PO PRN (12:05)
--- NOTE | 2019-08-05 12:07 | PDOC PROGRESS REPORT ---
Subjective Progress Note for:: 08/05/19 Subjective:: feels better after ng now passing flatus Reason For Visit: SMALL BOWEL OBSTRUCTION Physical Exam Vital Signs: Temp Pulse Resp BP Pulse Ox 97.8 F 89 18 136/61 H 95 08/05/19 08:00 08/05/19 08:00 08/05/19 08:00 08/05/19 08:00 08/05/19 08:00 Intake & Output 08/04/19 08/05/19 08/06/19 06:59 06:59 06:59 Intake Total 1999 1000 Output Total 100 Balance 1999 900 Weight 107.3 kg 101.7 kg General appearance: PRESENT: no acute distress Head exam: PRESENT: normocephalic Eye exam: PRESENT: EOMI Ear exam: PRESENT: normal external ear exam Mouth exam: PRESENT: moist Neck exam: PRESENT: full ROM Respiratory exam: PRESENT: clear to auscultation kaila Cardiovascular exam: PRESENT: RRR Pulses: PRESENT: normal radial pulses, normal femoral pulses Breast: PRESENT: Normal GI/Abdominal exam: PRESENT: other - abd softly distended, non tender few bs Rectal exam: PRESENT: deferred Extremities exam: PRESENT: full ROM Musculoskeletal exam: PRESENT: full ROM Neurological exam: PRESENT: alert, awake, oriented to person, oriented to place Psychiatric exam: PRESENT: appropriate affect Skin exam: PRESENT: dry Results Laboratory Results: 08/05/19 04:47 08/05/19 04:47 08/05/19 08/05/19 04:47 04:47 WBC 8.1 RBC 5.28 Hgb 12.5 Hct 39.2 MCV 74 L MCH 23.8 L MCHC 32.0 RDW 20.4 H Plt Count 311 Seg Neutrophils % 56.6 Sodium 138.7 Potassium 4.4 Chloride 104 Carbon Dioxide 26 Anion Gap 9 BUN 16 Creatinine 0.84 Est GFR ( Amer) > 60 Glucose 106 Calcium 8.8 Impressions: Abdomen/Pelvis CT 08/04/19 00:00 IMPRESSION: 1. Findings consistent with high-grade small bowel obstruction with transition point in right lower quadrant 2. Chronic changes as above Chest X-Ray 08/04/19 00:00 IMPRESSION: Limited exam with enteric tube tip projecting over the stomach. KUB X-Ray 08/04/19 16:31 IMPRESSION: NG tube as described. Assessment & Plan - Plan Summary Plan Summary: admitted last pm for sbo multiple previous surgeries and sbo's large outpt after ng placed now decreasing pt feeling better states she is now passing flatus will cont ng for now consider sbft in am
[2019-08-05] MEDS: ONDANSETRON HCL INJ/PF 4 MG/2 ML SDV IV PRN (23:48)
[2019-08-06] MEDS: POTASSI CL 20 MEQ/D5-1/2NS 1L 1000 ML IV PRN ×2 (05:06→13:22)
[2019-08-06 08:19] LABS: ABSOLUTE BASOPHILS # (AUTO) 0.1 10^3/uL (0.0-0.2); ABSOLUTE EOSINOPHILS # (AUTO) 0.1 10^3/uL (0.0-0.6); ABSOLUTE LYMPHOCYTES (AUTO) 1.6 10^3/uL (0.5-4.7); ABSOLUTE MONOCYTES (AUTO) 0.7 10^3/uL (0.1-1.4); ABSOLUTE NEUT (AUTO) 3.8 10^3/uL (1.7-8.2); BASOPHILS % (AUTO) 2.2 % (0-2); EOSINOPHILS % (AUTO) 2.2 % (0-6); HEMATOCRIT 35.1 % (36.0-47.0); HEMOGLOBIN 11.2 g/dL (12.0-15.5); MEAN CORPUSCULAR HGB CONC 31.9 g/dL (32.0-36.0); MEAN CORPUSCULAR VOLUME 75 fl (80-97); MONOCYTES % (AUTO) 10.3 % (3-13); PLATELET COUNT 292 10^3/uL (150-450); RED BLOOD COUNT 4.66 10^6/uL (3.72-5.28); RED CELL DISTRIBUTION WIDTH 20.3 % (11.5-14.0); SEGMENTED NEUTROPHILS % (AUTO) 60.3 % (42-78); TOTAL CELLS COUNTED % (AUTO) 100 %; WHITE BLOOD COUNT 6.3 10^3/uL (4.0-10.5)
--- NOTE | 2019-08-06 08:44 | RADIOLOGY REPORT (SQ) ---
EXAM DESCRIPTION: KUB/ABDOMEN (SINGLE VIEW) COMPLETED DATE/TIME: 08/06/2019 8:25 am REASON FOR STUDY: sbo COMPARISON: 07/06/2019 NUMBER OF VIEWS: One view. TECHNIQUE: Supine radiographic image of the abdomen acquired. LIMITATIONS: None. FINDINGS: BOWEL GAS PATTERN: Re- demonstration of mildly distended loops of small bowel in the centr al abdomen. CALCIFICATIONS: No suspicious calcifications. SOFT TISSUES: No gross mass or suggestion of organomegaly. HARDWARE: Partially imaged enteric tube with the tip and proximal port projecting subdiaphragmaticall y within the left upper quadrant. Cholecystectomy changes. Right total hip arthroplasty. BONES: No acute fracture. No worrisome bone lesions. OTHER: No other significant finding. IMPRESSION: Persistent appearance of prominent small bowel. Stable appearance of the enteric tube. TECHNICAL DOCUMENTATION: JOB ID: [id number] 2010 [employer]- All Rights Reserved Reading location - IP/workstation name: [email or web address]
[2019-08-06 09:19] LABS: ANION GAP 7 (5-19); BLOOD UREA NITROGEN 8 mg/dL (7-20); CALCIUM 8.8 mg/dL (8.4-10.2); CARBON DIOXIDE 30 mmol/L (22-30); CHLORIDE 103 mmol/L (98-107); GLUCOSE 111 mg/dL (75-110); POTASSIUM 4.3 mmol/L (3.6-5.0)
[2019-08-06] MEDS: FAMOTIDINE INJ/PF 20 MG/2 ML SDV IV SCH ×2 (09:22→21:34)
[2019-08-06] MEDS ORDERED: ALBUTEROL SULFATE HFA (90 MCG/PUFF) 8 GM MDI (1 MDI/ER DISP) IH PRN (09:38)
--- NOTE | 2019-08-06 09:47 | PDOC PROGRESS REPORT ---
Subjective Progress Note for:: 08/06/19 Subjective:: This is a 64-year-old female admitted with a small bowel obstruction. She reports that today her abdominal pain is gone. Her nausea has completely subsided. She is passing flatus and having bowel movements. Her abdomen is less distended. Overall she feels well. She is requesting that the NG tube be removed. She denies chest pain, shortness of breath, fevers, chills, headache, dizziness, orthostasis. Reason For Visit: SMALL BOWEL OBSTRUCTION Physical Exam Vital Signs: Temp Pulse Resp BP Pulse Ox 97.8 F 73 17 146/72 H 95 08/06/19 07:42 08/06/19 07:42 08/06/19 07:42 08/06/19 07:42 08/06/19 07:42 Intake & Output 08/05/19 08/06/19 08/07/19 06:59 06:59 06:59 Intake Total 2000 3000 Output Total 150 100 Balance 2000 2850 -100 Weight 101.7 kg 101.1 kg General appearance: PRESENT: no acute distress, cooperative Head exam: PRESENT: atraumatic, normocephalic Eye exam: PRESENT: EOMI, PERRLA. ABSENT: scleral icterus Mouth exam: PRESENT: moist, neck supple Neck exam: ABSENT: meningismus, tenderness, thyromegaly, tracheal deviation Respiratory exam: PRESENT: clear to auscultation kaila, unlabored. ABSENT: chest wall tenderness, tachypnea Cardiovascular exam: ABSENT: tachycardia Pulses: PRESENT: normal radial pulses Vascular exam: PRESENT: normal capillary refill. ABSENT: pallor GI/Abdominal exam: PRESENT: soft. ABSENT: distended, firm, guarding, rigid, tenderness Rectal exam: PRESENT: deferred Extremities exam: ABSENT: clubbing Musculoskeletal exam: ABSENT: deformity Neurological exam: PRESENT: alert, awake, oriented to person, oriented to place, oriented to time, oriented to situation, CN II-XII grossly intact. ABSENT: motor sensory deficit Psychiatric exam: ABSENT: anxious Focused psych exam: ABSENT: delusional Skin exam: ABSENT: cyanosis, erythema, jaundice Results Laboratory Results: 08/06/19 08:08 08/06/19 08:45 08/06/19 08/06/19 08/06/19 08:08 08:08 08:45 WBC 6.3 RBC 4.66 Hgb 11.2 L Hct 35.1 L MCV 75 L MCH 24.0 L MCHC 31.9 L RDW 20.3 H Plt Count 292 Seg Neutrophils % 60.3 Sodium Cancelled 139.8 Potassium Cancelled 4.3 Chloride Cancelled 103 Carbon Dioxide Cancelled 30 Anion Gap Cancelled 7 BUN Cancelled 8 Creatinine Cancelled 0.69 Est GFR ( Amer) Cancelled > 60 Est GFR (Non-Af Amer) Cancelled Glucose Cancelled 111 H Calcium Cancelled 8.8 Impressions: Abdomen/Pelvis CT 08/04/19 00:00 IMPRESSION: 1. Findings consistent with high-grade small bowel obstruction with transition point in right lower quadrant 2. Chronic changes as above Chest X-Ray 08/04/19 00:00 IMPRESSION: Limited exam with enteric tube tip projecting over the stomach. KUB X-Ray 08/06/19 00:00 IMPRESSION: Persistent appearance of prominent small bowel. Stable appearance of the enteric tube. Assessment & Plan - Diagnosis (1) Small bowel obstruction Is this a current diagnosis for this admission?: Yes - Plan Summary Plan Summary: This is a 64-year-old female admitted with a small bowel obstruction. Her NG tube is put out very little over the last 12 hours. Her abdomen is nondistended and nontender. She is passing flatus and having bowel movements. Her x-ray today shows air within the colon (specifically the transverse colon). I will remove her NG tube and start her on a liquid diet. If she progresses well, anticipate discharge in the next 24 to 48 hours. If her symptoms recur, she may require surgical intervention. I will follow this patient very closely.
[2019-08-06] MEDS ORDERED: (PENDING PHARMACY ID) (Lisinopril/Hydrochlorothiazide [Lisinopril-Hctz 20-12.5 Mg Tab] 1 T PO SCH (10:00)
[2019-08-06] MEDS ORDERED: ALBUTEROL SULFATE HFA (90 MCG/PUFF) 8 GM MDI IH PRN (10:07)
[2019-08-06] MEDS: GUAIFENESIN 600 MG TABLET.SA PO SCH ×2 (12:55→21:34)
[2019-08-06] MEDS: ASPIRIN 81 MG TABLET, ENT COATED PO SCH (12:55)
[2019-08-06] MEDS: LISINOPRIL 10 MG TABLET PO SCH (13:14)
[2019-08-06] MEDS: HYDROCHLOROTHIAZIDE 12.5 MG TABLET PO SCH (13:15)
[2019-08-06] MEDS: PANTOPRAZOLE SODIUM 20 MG TABLET.DR PO SCH (14:00)
[2019-08-07] MEDS: PANTOPRAZOLE SODIUM 20 MG TABLET.DR PO SCH (05:13)
--- NOTE | 2019-08-07 08:17 | PDOC PROGRESS REPORT ---
Subjective Progress Note for:: 08/07/19 Subjective:: Continues to have liquid stools with flatus. Feels a lot better with practically no abdominal pains tolerating clears Reason For Visit: SMALL BOWEL OBSTRUCTION Physical Exam Vital Signs: Temp Pulse Resp BP Pulse Ox 97.7 F 64 16 157/86 H 98 08/07/19 07:31 08/07/19 07:31 08/07/19 07:31 08/07/19 07:31 08/07/19 07:31 Intake & Output 08/06/19 08/07/19 08/08/19 06:59 06:59 06:59 Intake Total 3000 2588 Output Total 150 100 Balance 2850 2488 Weight 101.1 kg 105.5 kg Exam: abdomen is soft and non tender Results Laboratory Results: 08/06/19 08:08 08/06/19 08:45 08/06/19 08/06/19 08/06/19 08:08 08:08 08:45 WBC 6.3 RBC 4.66 Hgb 11.2 L Hct 35.1 L MCV 75 L MCH 24.0 L MCHC 31.9 L RDW 20.3 H Plt Count 292 Seg Neutrophils % 60.3 Sodium Cancelled 139.8 Potassium Cancelled 4.3 Chloride Cancelled 103 Carbon Dioxide Cancelled 30 Anion Gap Cancelled 7 BUN Cancelled 8 Creatinine Cancelled 0.69 Est GFR ( Amer) Cancelled > 60 Est GFR (Non-Af Amer) Cancelled Glucose Cancelled 111 H Calcium Cancelled 8.8 Impressions: Abdomen/Pelvis CT 08/04/19 00:00 IMPRESSION: 1. Findings consistent with high-grade small bowel obstruction with transition point in right lower quadrant 2. Chronic changes as above Chest X-Ray 08/04/19 00:00 IMPRESSION: Limited exam with enteric tube tip projecting over the stomach. KUB X-Ray 08/06/19 00:00 IMPRESSION: Persistent appearance of prominent small bowel. Stable appearance of the enteric tube. Assessment & Plan - Time Critical Time spent with patient: 15-24 minutes - Plan Summary Plan Summary: Increase to full liquids today and if tolerated increase to soft diet Plan discharge in 24 hrs if continues to improve
[2019-08-07] MEDS: FAMOTIDINE INJ/PF 20 MG/2 ML SDV IV SCH ×2 (10:01→21:18)
[2019-08-07] MEDS: ASPIRIN 81 MG TABLET, ENT COATED PO SCH (10:02)
[2019-08-07] MEDS: HYDROCHLOROTHIAZIDE 12.5 MG TABLET PO SCH (10:03)
[2019-08-07] MEDS: LISINOPRIL 10 MG TABLET PO SCH (10:03)
[2019-08-07] MEDS: GUAIFENESIN 600 MG TABLET.SA PO SCH ×2 (10:03→21:18)
[2019-08-07] MEDS ORDERED: INFLUENZA QUAD (6MOS+) 2019-20 VAC 0.5 ML SYR IM ONE (15:43)
[2019-08-08] MEDS: PANTOPRAZOLE SODIUM 20 MG TABLET.DR PO SCH (05:10)
[2019-08-08] MEDS: ASPIRIN 81 MG TABLET, ENT COATED PO SCH (09:04)
[2019-08-08] MEDS: LISINOPRIL 10 MG TABLET PO SCH (09:04)
[2019-08-08] MEDS: GUAIFENESIN 600 MG TABLET.SA PO SCH (09:04)
[2019-08-08] MEDS: HYDROCHLOROTHIAZIDE 12.5 MG TABLET PO SCH (09:04)
[2019-08-08] MEDS: FAMOTIDINE INJ/PF 20 MG/2 ML SDV IV SCH (09:04)
--- NOTE | 2019-08-08 11:59 | RADIOLOGY REPORT (SQ) ---
EXAM DESCRIPTION: KUB/ABDOMEN (SINGLE VIEW) COMPLETED DATE/TIME: 08/08/2019 11:29 am REASON FOR STUDY: SBO COMPARISON: CT abdomen and pelvis 07/05/2017, 08/04/2019 Abdominal films 07/05/2017, 07/06/2017, 08/04/2019, 08/06/2019 CT NUMBER OF VIEWS: One view. TECHNIQUE: Supine radiographic image of the abdomen acquired. LIMITATIONS: None. FINDINGS: BOWEL GAS PATTERN: Few persistent air-filled small bowel loops in the mid epigastrium, non specific pattern. Gas and stool in the colon. Nasogastric tube has been removed. Stomach decompres sed. CALCIFICATIONS: Abandoned gallstones in the right hepatorenal fossa, correlates with CT images 22-27 from 08/04/2019. Old calcified right pelvic lymph nodes and pelvic phleboliths. SOFT TISSUES: No gross mass or suggestion of organomegaly. HARDWARE: Clips right upper quadrant post cholecystectomy. Right total hip replacement BONES: No acute fracture. No worrisome bone lesions. OTHER: No other significant finding. IMPRESSION: Grossly nonobstructive bowel gas pattern TECHNICAL DOCUMENTATION: JOB ID: [id number] [employer]- All Rights Reserved Reading location - IP/workstation name: [email or web address]
[2019-08-08 12:11] VITALS: BP 118/64
--- NOTE | 2019-08-08 14:17 | PDOC DISCHARGE SUMMARY ---
General - Admit/Disc Date/PCP Admission Date/Primary Care Provider: 08/04/19 14:33 Discharge Date: 08/08/19 - Discharge Diagnosis Final Diagnosis: Small bowel obstruction, resolved - Assessment Summary: 64-year-old female complaining of nausea and vomiting and CAT scan showed small bowel obstruction. Patient gradually improved spontaneously and able to tolerate soft diet on the day of discharge with continued bowel movement and passage of flatus. Her pain subsided. She had KUB on the day of discharge which showed nonobstructive pattern of the bowel She was then discharged on 08/07/2021 continue with low residue diet for the next 2 weeks. She will be followed up in the surgical clinic in 2 weeks - Additional Information Resuscitation Status: Full Code Discharge Diet: As Tolerated - Low residue diet Discharge Activity: Activity As Tolerated Referrals: [facility] [Provider Group] - 08/16/19 9:30 am Home Medications: Albuterol Sulfate [Proair HFA] 1 puff IH QIDP PRN 07/05/17 Aspirin [Aspirin EC] 81 mg PO DAILY 07/05/17 Lisinopril/Hydrochlorothiazide [Lisinopril-Hctz 20-12.5 mg Tab] 1 tab PO DAILY 07/05/17 Omeprazole 20 mg PO DAILY 07/05/17 History of Present Illiness History of Present Illness: PAUL CHOWDHURY is a 64 year old female Physical Exam Vital Signs: Temp Pulse Resp BP Pulse Ox 97.3 F 79 17 118/64 95 08/08/19 13:31 08/08/19 13:31 08/08/19 13:31 08/08/19 13:31 08/08/19 13:31 Intake & Output 08/07/19 08/08/19 08/09/19 06:59 06:59 06:59 Intake Total 2588 1040 118 Output Total 100 Balance 2488 1040 118 Weight 105.5 kg 106 kg Results Laboratory Results: WBC 6.3 10^3/uL (4.0-10.5) 08/06/19 08:08 RBC 4.66 10^6/uL (3.72-5.28) 08/06/19 08:08 Hgb 11.2 g/dL (12.0-15.5) L 08/06/19 08:08 Hct 35.1 % (36.0-47.0) L 08/06/19 08:08 MCV 75 fl (80-97) L 08/06/19 08:08 MCH 24.0 pg (27.0-33.4) L 08/06/19 08:08 MCHC 31.9 g/dL (32.0-36.0) L 08/06/19 08:08 RDW 20.3 % (11.5-14.0) H 08/06/19 08:08 Plt Count 292 10^3/uL (150-450) 08/06/19 08:08 Lymph % (Auto) 25.0 % (13-45) 08/06/19 08:08 [place] % (Auto) 10.3 % (3-13) 08/06/19 08:08 Eos % (Auto) 2.2 % (0-6) 08/06/19 08:08 Baso % (Auto) 2.2 % (0-2) H 08/06/19 08:08 Absolute Neuts (auto) 3.8 10^3/uL (1.7-8.2) 08/06/19 08:08 Absolute Lymphs (auto) 1.6 10^3/uL (0.5-4.7) 08/06/19 08:08 Absolute Monos (auto) 0.7 10^3/uL (0.1-1.4) 08/06/19 08:08 Absolute Eos (auto) 0.1 10^3/uL (0.0-0.6) 08/06/19 08:08 Absolute Basos (auto) 0.1 10^3/uL (0.0-0.2) 08/06/19 08:08 Seg Neutrophils % 60.3 % (42-78) 08/06/19 08:08 Sodium 139.8 mmol/L (137-145) 08/06/19 08:45 Potassium 4.3 mmol/L (3.6-5.0) 08/06/19 08:45 Chloride 103 mmol/L (98-107) 08/06/19 08:45 Carbon Dioxide 30 mmol/L (22-30) 08/06/19 08:45 Anion Gap 7 (5-19) 08/06/19 08:45 BUN 8 mg/dL (7-20) 08/06/19 08:45 Creatinine 0.69 mg/dL (0.52-1.25) 08/06/19 08:45 Est GFR ( Amer) > 60 (>60) 08/06/19 08:45 Est GFR (Non-Af Amer) Cancelled 08/06/19 08:08 Est GFR (MDRD) Non-Af > 60 (>60) 08/06/19 08:45 Glucose 111 mg/dL (75-110) H 08/06/19 08:45 Calcium 8.8 mg/dL (8.4-10.2) 08/06/19 08:45 Total Bilirubin 1.0 mg/dL (0.2-1.3) 08/04/19 09:33 Direct Bilirubin 0.1 mg/dL (0.0-0.4) 08/04/19 09:33 Neonat Total Bilirubin Not Reportable 08/04/19 09:33 Neonat Direct Bilirubin Not Reportable 08/04/19 09:33 Neonat Indirect Bili Not Reportable 08/04/19 09:33 AST 42 U/L (14-36) H 08/04/19 09:33 ALT 53 U/L (<35) H 08/04/19 09:33 Alkaline Phosphatase 128 U/L (38-126) H 08/04/19 09:33 Total Protein 8.6 g/dL (6.3-8.2) H 08/04/19 09:33 Albumin 4.7 g/dL (3.5-5.0) 08/04/19 09:33 Lipase 38.1 U/L (23-300) 08/04/19 09:33 EGFR Cancelled 08/06/19 08:08 Urine Color YELLOW 08/04/19 07:24 Urine Appearance SLIGHTLY-CLOUDY 08/04/19 07:24 Urine pH 5.0 (5.0-9.0) 08/04/19 07:24 Ur Specific Tiff 1.023 08/04/19 07:24 Urine Protein 100 mg/dL (NEGATIVE) H 08/04/19 07:24 Urine Glucose (UA) NEGATIVE mg/dL (NEGATIVE) 08/04/19 07:24 Urine Ketones TRACE mg/dL (NEGATIVE) H 08/04/19 07:24 Urine Blood NEGATIVE (NEGATIVE) 08/04/19 07:24 Urine Nitrite NEGATIVE (NEGATIVE) 08/04/19 07:24 Urine Bilirubin NEGATIVE (NEGATIVE) 08/04/19 07:24 Urine Urobilinogen NEGATIVE mg/dL (<2.0) 08/04/19 07:24 Ur Leukocyte Esterase SMALL (NEGATIVE) H 08/04/19 07:24 Urine WBC (Auto) 9 /HPF 08/04/19 07:24 Urine RBC (Auto) 5 /HPF 08/04/19 07:24 U Hyaline Cast (Auto) 31 /LPF 08/04/19 07:24 Urine Bacteria (Auto) TRACE /HPF 08/04/19 07:24 Squamous Epi Cells Auto 5 /HPF 08/04/19 07:24 WBC Casts (Auto) 3 /LPF 08/04/19 07:24 Urine Mucus (Auto) MANY /LPF 08/04/19 07:24 Urine Ascorbic Acid 40 (NEGATIVE) H 08/04/19 07:24 Impressions: Abdomen/Pelvis CT 08/04/19 00:00 IMPRESSION: 1. Findings consistent with high-grade small bowel obstruction with transition point in right lower quadrant 2. Chronic changes as above Chest X-Ray 08/04/19 00:00 IMPRESSION: Limited exam with enteric tube tip projecting over the stomach. KUB X-Ray 08/04/19 16:31 IMPRESSION: NG tube as described. KUB X-Ray 08/06/19 00:00 IMPRESSION: Persistent appearance of prominent small bowel. Stable appearance of the enteric tube. KUB X-Ray 08/08/19 10:48 IMPRESSION: Grossly nonobstructive bowel gas pattern
== END 2019-08-08 14:16 | disposition home or self-care (01) | DRG 390 ==
LOC: ER 06:32 → EH 14:33 → 4N 17:52
PROVIDERS: ADMIT Surgery; ATTEND Surgery
PROC: 0D9670Z Drainage of Stomach with Drainage Device, Via Natural or Artificial Opening (ICD-10-PCS; principal; 2019-08-04)
DX: K56.609 Unspecified intestinal obstruction, unspecified as to partial versus complete obstruction (principal); I10 Essential (primary) hypertension; J45.909 Unspecified asthma, uncomplicated; K21.9 Gastro-esophageal reflux disease without esophagitis; F17.200 Nicotine dependence, unspecified, uncomplicated; Z90.49 Acquired absence of other specified parts of digestive tract; Z88.5 Allergy status to narcotic agent
CPT/HCPCS: 36415; 71045; 74018; 74177; 80048; 80053; 81001; 83690; 85025; 90686; 93005; 93010; 94799; 96361; 96374; 96375; 96376; 99285; J0780; J2405; J2765; J3010; J3480; J3490; J7030; S0028